=== PATIENT | male | born 1960 | race Caucasian/White ===

== ENCOUNTER 2021-06-17 17:59 | Emergency (ER) | payer MEDICARE, MEDICAID, SELFPAY ==
[2021-06-17 18:41] VITALS: BP 164/83; PULSE 83; RESP 16; TEMP 35.1; O2SAT 99
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
--- NOTE | 2021-06-17 23:53 | NUR.NOTE ---
Nursing Note:care management to set up with pcp and to follow up withe the hotel.
--- NOTE | 2021-06-26 12:15 | PDOC.ERCMPRO ---
- If Service Date Differs Date of service: 06/26/21 Time of Service: 12:15 Care Management Progress Note Jeronimo is seen in the ED for housing instability. CM is asked to outreach to him to assist with housing issues and to connect him with a PCP. CM attempts to reach patient by telephone but the phone number on file ([phone]) is not in service.
== END 2021-06-18 00:11 | disposition home or self-care (01) ==
PROVIDERS: Emergency Provider Physician Assistant
DX: J96.10 Chronic respiratory failure, unspecified whether with hypoxia or hypercapnia (principal); Z99.81 Dependence on supplemental oxygen; Z59.02 Unsheltered homelessness; Z87.891 Personal history of nicotine dependence
CPT/HCPCS: 99281; 99282

== ENCOUNTER 2021-07-20 13:36 | Emergency (ER) | payer MEDICARE, MEDICAID, SELFPAY ==
[2021-07-20 13:45] VITALS: BP 157/89; PULSE 99; RESP 20; TEMP 36.6; O2SAT 99
--- NOTE | 2021-07-20 14:31 | ED.GENADUL_ITS ---
Discharge Plan Disposition Patient Disposition: HOME Condition: Good Discharge Details Clinical Impression: Medication refill Primary Care Provider: Unknown,Unknown ED Provider: Margaret Castro Home Meds and New Rx's Prescriptions: New theophylline 300 mg tablet extended release 12 hr 150 mg PO Q12H Qty: 60 RF: 0 Trelegy Ellipta 100-62.5-25 mcg blister with device 1 inh inhalation DAILY Qty: 60 RF: 0 Continued theophylline 300 mg Tablet Extended Release 12 Hr 150 mg PO BID RF: 0 No Action Trelegy Ellipta 100-62.5-25 mcg Blister With Device 1 inh INHALATION DAILY RF: 0 Discharge Instructions Additional Instructions: Your medications have been refilled and the prescription sent to [facility] in [place]. Please follow-up in urgent care tomorrow to establish primary care follow-up as was instructed by care management. If you develop any new or emergent symptoms please seek care urgently once again. Discharge Data Discharge Date/Time-TO BE ENTERED AT DEPARTURE: 07/20/21 14:58 Medical Decision Making Patient is a pleasant 60 year old male presenting today requesting refill of Trelegy and theophyline. No acute comlaints. Has not yet established with PCP locally. Care management has evaluate dhte patient, advised on how to go about establishing local PCP. He will go to urgent care tomorrow to establish. Refilled medications requested. Return precautions discussed. All quesitons and concerns were addressed, he is in agreement with this plan. HPI General Mode of arrival: ambulatory . Date/Time Provider Initiated Documentation: 07/20/21 14:31 . Limitations to Documentation: no limitations . Information obtained by: patient, RN notes reviewed and old records reviewed . HPI Narrative: Patient is a pleasant 60 year old male presenting today with c/c of medication refill. He is new ot the area, has not yet established with PCP. Hx of COPD. States he is running low on Trelegy and theophylline. No acute complaints today. Related Data Home Medications Medication Instructions Recorded Confirmed Trelegy Ellipta 1 inh INHALATION DAILY 06/17/21 07/20/21 theophylline 150 mg PO BID 06/17/21 07/20/21 [id number] 1 inh INHALATION DAILY #60 ea 07/20/21 [Trelegy Ellipta] theophylline 150 mg PO Q12H #60 tab 07/20/21 Previous Rx's Medication Instructions Recorded [id number]-lukoeiqmv-[id number] 1 inh INHALATION DAILY #60 ea 07/20/21 [Trelegy Ellipta] theophylline 150 mg PO Q12H #60 tab 07/20/21 Allergies Allergy/AdvReac Type Severity Reaction Status Date / Time Penicillins Allergy Unverified 06/17/21 23:30 General Stated Complaint: Recheck OSMAN: 5 Review of Systems Constitutional Constitutional: Reports as per HPI, Denies chills, Denies fever(s) and Denies headache(s) ENT Ears, Nose, Mouth, and Throat: Denies headache(s) Cardiovascular Cardiovascular: Reports as per HPI, Denies chest pain and Denies dyspnea Respiratory Respiratory: Reports as per HPI, Denies cough and Denies dyspnea Neurologic Neurologic: Denies headache(s) [facility] Active Problem List (Updated 07/20/21 @ 14:47 by ZAC Sanders) Housing instability (Acute) Medication refill (Acute) Social History Smoking/Tobacco Use Status: Former Tobacco Use Smoking risk assessment performed?: Yes Alcohol Intake: former Drug use: Never Substance use type: does not use Additional Social history: Currently Homeless, ran out of O2 Exam Const General: cooperative, comfortable, no acute distress and ill appearing chronically Nutritional Appearance: well nourished and thin Orientation: alert and awake Resp Effort & Inspection: normal respiratory effort (using home O2 without difficulty or work of breathing), able to speak in complete sentences and no respiratory distress Cardio Rate: regular rate Rhythm: regular rhythm Skin General skin exam: no rashes or lesions noted Neuro General: patient alert and patient awake Cognition: normal cognition Speech: speech normal Gait: normal gait Psych Appearance: grossly normal and well kempt Mental Status: mental status grossly normal Speech and Movement: speech and movement normal Course Vital Signs Vital signs: Vital Signs Temperature 36.6 C 07/20/21 13:45 Pulse 99 H 07/20/21 13:45 Respiratory Rate 20 07/20/21 13:45 Blood Pressure 157/89 H 07/20/21 13:45 Pulse Oximetry 99 07/20/21 13:45 Temperature 36.6 C 07/20/21 13:45 Temperature Source Skin 07/20/21 13:45 Pulse 99 H 07/20/21 13:45 Respiratory Rate 20 07/20/21 13:45 Respiratory Effort 07/20/21 13:51 Blood Pressure 157/89 H 07/20/21 13:45 Blood Pressure Position Sitting 07/20/21 13:45 Pulse Oximetry 99 07/20/21 13:45 Oxygen Delivery Method Room Air 07/20/21 13:45 Oxygen Flow Rate 0 07/20/21 13:45 Pain Level 0 07/20/21 13:45
--- NOTE | 2021-07-20 15:29 | CMPROGNOTE_ITS ---
- If Service Date Differs Date of service: 07/20/21 Time of Service: 15:29 Care Management Progress Note Jeronimo presents in the ED for refills of his medications. At the request of ED provider, BARI meets with Jeronimo to assist him in establishing care with a local PCP. Jeronimo advises that he spent approximately a year at the [facility] in [place], [place]. He was subsequently transferred to [facility] before being discharged back to the community. Jeronimo states he lost his housing while at the longterm and says he was unable to return to [facility] because of a disagreement. 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 In the interim, he is staying at the [facility] in [place]. 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
== END 2021-07-20 14:58 | disposition home or self-care (01) ==
PROVIDERS: Emergency Provider Physician Assistant
DX: J44.9 Chronic obstructive pulmonary disease, unspecified (principal); Z76.0 Encounter for issue of repeat prescription
CPT/HCPCS: 99283

== ENCOUNTER 2021-10-07 01:39 | Outpatient (CLI) | payer MEDICARE, MEDICAID, SELFPAY ==
--- OUTSIDE RECORDS SUMMARY | 2021-10-07 01:41 | XMS_ITS | Continuity of Care Document ---
:1960 Author Organization [facility] Care Team Providers Name Role Phone [facility] Unavailable Unavailable Encounters Combined list of: 1) Encounters from Department of Veterans Affairs facilities going back up to thelast 18 months, not all VA inpatient encounters are included; 2) Encounters from the Department of Defense facilities going backup to 280 months. Location Location Encounter Encounter Reason Attending ADM DC Stat us Disposition Source Details Type Number For Provider Date Date Visit Outpatient [id number] 05/13 ALFONSO Sawant Encounter [id number] /2021 [facility]
--- OUTSIDE RECORDS SUMMARY | 2021-10-07 01:41 | XMS_ITS | Encounter Summary ---
:1960 Author Organization Department [facility] Address [address] [place] [id number] Support Name Relationship Address Phone BLOVIN Unavailable [address] [place] [address] BLOVIN Unavailable [address] [place] [address] Selected Encounter This section includes the information on record at [place] for the Encounter. Date/Time Encounter Type Encounter Description Reason Provider Source May 13, 2021 10:58 Outpatient Encounter ADMIN PAT ACTIVTIES AM (MASNONCT) IHE Encounter Template Text not used by VA Encounter Notes: All associated encounter notes This section contains the clinical notes associated to the Encounter. Date/Time Encounter Note(s) Provider Source May 13, 2021 10:58 AM ADMINISTRATIVE NOTE: CORRINA ROBERTS [facility] WILY KUMAR T LOCAL TITLE: ELIGIBILITY NOTE V [facility] STANDARD TITLE: ADMINISTRATIVE NOTE DATE OF NOTE: MAY 13, 2021@10:58 ENTRY DATE: MAY 13, 2021@10:58:54 AUTHOR: CORRINA ROBERTS EXP COSIGNER: URGENCY: STATUS: COMPLETED Eligible: NO Priority Group: NONE - HUMANITARIAN Not Eligible because: NATIONAL GUARD SER VICE ONLY - NO ACTIVE DUTY UNDER TITLE 10 OR ACTIVE DUTY FOR 24 MONTHS INDICATED Copay status: WILL BE BILLED AT THE HUMANITARIAN RATE Was [place] Notified: LETTER SENT VIA MAIL Dear , In accordance with VA Regulations person s who originally enlisted in a regular component of the Armed Force s after May 05, 1980, or after June 14, 1981 for non-enlisted personnel, are not eligible for benefits administered by the VA unless the completed the lesser of: 1. Twenty-four (24) continuou s months of active duty, or 2. The full period time tan d or order to active duty. In accordance with VA Regulations, a person prio r to April 1980, needs to have 1 day of active duty service that is not cl assified as training. The minimum active duty requirem ents noted above do not apply for an individual who was discharged or release from active duty for: 1. Reasons of early out (10 [facility] 1171); or 2. Reasons of hardship (10 [facility] 1173); or 3. Disab ility incurred or aggravated by in the line of duty (Disability; or 4. A who has a compe nsable VA rated service connected disability. We have been advised your release from a ctive duty was not by reasons of early out, hardship, a line of dut y disability, nor do you have a compensable VA rated service connected disability . Therefore, regretfully, you are not eligible for VA medical benefits. If you have any questions, please contact us via email. Sincerely yours, Corrina Roberts Appliance Worker [phone] Ext: [phone] /es/ CORRINA ROBERTS Signed: 05/13/2021 11:01
[2021-10-07 12:20] LABS: HCT 45.7 % (40.0-50.0); HGB 14.7 g/dL (13.5-17.5); MCH 28.3 pg (27.0-33.0); MCHC 32.2 % (32.0-36.0); MCV 87.9 fL (80-95); MPV 10.3 fL (8.0-11.0); Platelet Count 216 10^3/uL (130-400); RDW 12.9 % (11.8-14.1); RDW-SD 41.6 fL; WBC 5.82 10^3/uL (4.4-10.8)
[2021-10-07 13:30] LABS: ALT 21 U/L (16-63); AST 18 U/L (15-37); Alkaline Phosphatase 87 U/L (46-116); Anion Gap 9.4 mmol/L (3-11); BUN 12 mg/dL (7-18); Bilirubin, Total 0.4 mg/dL (0.2-1.0); CO2 31.6 mmol/L (21.0-32.0); CREATININE 0.8 mg/dL (0.70-1.30); Calcium 9.2 mg/dL (8.5-10.1); Calculated LDL 144 mg/dL (<100); Chloride 100 mmol/L (98-107); Cholesterol 225 mg/dL (<200); Glucose 96 mg/dL (74-106); HDL Cholesterol 60 mg/dL (40-60); Potassium 3.7 mmol/L (3.5-5.1); Sodium 141 mmol/L (136-145); TSH (W/Ref FT4) 2.21 uIU/mL (0.36-3.74); Total Protein 6.8 g/dL (6.4-8.2); Triglyceride 108 mg/dL (<150)
[2021-10-07 22:50] LABS: Theophylline 8.1 ug/mL (10.0-20.0)
== END 2021-10-07 01:40 | disposition home or self-care (01) ==
LOC: LBO 01:39
PROVIDERS: PCP Family Medicine; Visit Provider Family Medicine
DX: I10 Essential (primary) hypertension (principal); J44.9 Chronic obstructive pulmonary disease, unspecified; Z13.6 Encounter for screening for cardiovascular disorders; Z51.81 Encounter for therapeutic drug level monitoring; Z79.899 Other long term (current) drug therapy
CPT/HCPCS: 36415; 80053; 80061; 85027; 80198; 84443

== ENCOUNTER 2021-12-25 00:55 | Outpatient (CLI) | payer MEDICARE, MEDICAID, SELFPAY ==
--- OUTSIDE RECORDS SUMMARY | 2021-12-25 00:57 | XMS_ITS | Continuity of Care Document ---
:1960 Author Organization [facility] Care Team Providers Name Role Phone [facility] Unavailable Unavailable Encounters Combined list of: 1) Encounters from Department of Veterans Affairs facilities going back up to the last 18 months, not all VA inpatient encounters are included; 2) Encounters from the Department of Defense facilities going back up to 280 months. Location Location Encounter Encounter Reason Attending ADM DC Stat us Disposition Source Details Type Number For Provider Date Date Visit Outpatient [id number] 05/13 ALFONSO Sawant Encounter [id number] /2021 JOSÉ PORRAS [facility]
--- OUTSIDE RECORDS SUMMARY | 2021-12-25 00:57 | XMS_ITS | Encounter Summary ---
:1960 Author Organization [facility] Address [address] [place] [id number] Support Name Relationship Address Phone BLOVIN Unavailable [address] [place] [address] BLOVIN Unavailable [address] [place] [address] Selected Encounter This section includes the information on record at [place] for the Encounter. Date/Time Encounter Type Encounter Description Reason Provider Source May 13, 2021 10:58 Outpatient Encounter ADMIN PAT ACTIVTIES AM (MASNONCT) IHE Encounter Template Text not used by VA Encounter Notes: All associated encounter notes This section contains the clinical notes associated to the Encounter. Date/Time Encounter Note(s) Provider Source May 13, 2021 10:58 AM ADMINISTRATIVE NOTE: CORRINA ROBERTS [facility] WILY KUMAR [facility] LOCAL TITLE: ELIGIBILITY NOTE V [facility] STANDARD TITLE: ADMINISTRATIVE NOTE DATE OF NOTE: MAY 13, 2021@10:58 ENTRY DATE: MAY 13, 2021@10:58:54 AUTHOR: CORRINA ROBERTS EXP COSIGNER: URGENCY: STATUS: COMPLETED Eligible: NO Priority Group: NONE - HUMANITARIAN Not Eligible because: NATIONAL GUARD SER VICE ONLY - NO ACTIVE DUTY UNDER TITLE 10 OR ACTIVE DUTY FOR 24 MONTHS INDICATED Copay status: WILL BE BILLED AT THE HUMANITARIAN RATE Was [place] Notified: LETTER SENT VIA MAIL Dear , In accordance with [place] Regulations person s who originally enlisted in [...] for: 1. Reasons of early out (10 [facility] 1171); or 2. Reasons of hardship (10 [place] 1173); or 3. Disab ility incurred or [...] us via email. Sincerely yours, Corrina Roberts Guest Service Supervisor [phone] Ext: [phone] /es/ CORRINA ROBERTS Signed: 05/13/2021 11:01
--- NOTE | 2021-12-25 07:45 | DI.CTLCSR_ITS ---
Exam(s) CT CHEST LUNG CANCER SCREEN EXAM: CT CHEST LUNG CANCER SCREEN CLINICAL HISTORY: Screening for lung cancer,FORMER SMOKER,Z87.891 TECHNIQUE: Imaging Protocol: Axial computed tomography images with coronal and sagittal reformatted images were created and reviewed COMPARISON: CT CT CHEST LOW DOSE CA SCREENING from 12/25/2020 FINDINGS: Tracheobronchial tree: Patent where visualized. Mediastinum and Viktoriya: No dominant adenopathy or fluid collection. Pulmonary parenchyma: No consolidation or dominant measurable mass. Is severe panlobular emphysema u pper lobes. Moderate emphysematous changes lower lobes. Stable area of scarring right upper lobe. Scarring right lower lobe.. Lung Nodules: None. Pleura: No effusion or pneumothorax. Heart: The heart is not dilated. mild coronary artery calcifications are seen. Aorta: Thoracic aorta non-dilated.Maximal dimension ascending aorta 3.3 cm. Upper abdomen: Unremarkable. Bones: Mild compression and Schmorl's node superior endplate L1. Minimal degenerative changes elsewh ere. Soft Tissues: Mild bilateral gynecomastia, left greater than right. IMPRESSION: No suspicious pulmonary nodules. Severe emphysematous changes. Lung RADS Cat 1 - Negative: No nodules and definitely benign nodule Lung-RADS 1.0 CATEGORIES: Category 0 - Prior chest CT exam(s) being located for comparison. Category 1 - Annual screening in 12 months. No nodules or definitely benign nodules. Category 2 - Annual screening in 12 months. Benign appearance. Nodules with low likelihood of becomin g active cancer. Category 3 - 6-month follow-up. Probably benign. Short-term follow-up suggested. Nodules with low lik elihood of becoming active cancer. Category 4A - 3-month follow-up and CT/PET if >8 mm in size. Suspicious finding. Findings which requi re additional testing. Category 4B - Findings which require additional testing and tissue sampling. Category 4X - Category 3 or 4 nodules with additional features or imaging findings that increases the suspicion of malignancy. Modifier S- Potentially clinically significant findings (non lung cancer) RADIATION DOSE DELIVERED: 91.09mGy.cm Total DLP 1.84mGy CTDIvol DATA REPOSITORY: All CT scans at this facility are submitted to the National Radiology Data Registry (NRDR) Dose Index Registry (DIR) with the [employer] (ACR). RADIATION OPTIMIZATION: All CT scans at this facility use at least one of these dose optimization te ambrose: automated exposure control; mA and/or kV adjustment per patient size (includes targeted exa ms where dose is matched to clinical indication); or iterative reconstruction.
== END 2021-12-25 01:15 ==
PROVIDERS: PCP Family Medicine; Visit Provider Family Medicine
DX: Z12.2 Encounter for screening for malignant neoplasm of respiratory organs (principal); Z87.891 Personal history of nicotine dependence; J43.8 Other emphysema; J98.4 Other disorders of lung
CPT/HCPCS: 71271

== ENCOUNTER 2022-02-01 04:13 | Outpatient (CLI) | payer MEDICARE, MEDICAID, SELFPAY ==
[2022-02-01 08:28] LABS: BE 6 mmol/L (-2-3); HCO3 32 mmol/L (22-26); pH 7.32 (7.35-7.45); pO2 119 mmHg (80-105); sO2 98 % (95-98); tCO2 29 mmol/L (23-27)
[2022-02-01] MEDS: Albuterol HFA 18 GM 200 PUFF INH IH (09:11)
[2022-02-01] MEDS: Inhaler, Assist Device 1 EACH MC (09:12)
[2022-02-01 09:17] LABS: Site Right Radial; pCO2 62 mmHg (35-45)
[2022-02-01 09:18] LABS: FIO2L 2 L
--- NOTE | 2022-02-01 10:41 | W.PFT ---
Date of service: 02/01/22 Time of Service: 08:15 Pulmonary Function Test Result Requesting Provider Anoop Indications: COPD 6 Minute Walk Test Distance walked: 600 feet Desaturations: Low was 91% on baseline 2 LPM O2 Heart rate changes:Tachycardia from 95 at rest to 114 with exertion Recommendation:2LPM sufficient with exertion. Cata Davalos MD Pulmonary & Critical Care Medicine
--- NOTE | 2022-02-02 08:57 | W.PFT ---
Date of service: 02/01/22 Time of Service: 08:27 Pulmonary Function Test Result Requesting Provider Duchene Indications: Severe DELATORRE Interpretation Spirometry: There is very severe airflow limitation. The reduced FVC is likely due to severe obstruction. There is no significant bronchodilator response. Diffusion Capacity: Severely reduced diffusion. Impression Very severe airflow obstruction with a severely decreased diffusion. Lung volumes could not be performed due to need for continuous oxygen. Clinical Correlation therefore is recommended.
== END 2022-02-01 04:14 | disposition home or self-care (01) ==
PROVIDERS: PCP Family Medicine; Visit Provider Student in an Organized Health Care Education/Training Program
DX: J44.9 Chronic obstructive pulmonary disease, unspecified (principal); R06.09 Other forms of dyspnea; Z99.81 Dependence on supplemental oxygen
CPT/HCPCS: 82805; 94060; 94618; 94729; 36600

== ENCOUNTER → 2023-07-05 13:28 | Outpatient (BNVA) | payer MEDICARE, MEDICAID, SELFPAY | PROVIDERS: PCP Family Medicine; Referring Provider Family Medicine; Visit Provider Physician Assistant Surgical | DX: J43.9 Emphysema, unspecified (principal); Z99.81 Dependence on supplemental oxygen; Z79.899 Other long term (current) drug therapy; J96.91 Respiratory failure, unspecified with hypoxia; J96.92 Respiratory failure, unspecified with hypercapnia; Z23 Encounter for immunization; Z87.891 Personal history of nicotine dependence | CPT/HCPCS: 90677; 99214; G0009 ==

== ENCOUNTER 2023-07-13 22:58 | Inpatient (IN) | payer MEDICARE, MEDICAID, SELFPAY ==
--- NOTE | 2023-07-13 22:00 | RT.EKG_ITS ---
APPROVED REPORT Exam: Resting ECG Reason for Exam: Breathing Diff Patient Location: E HR:102 bpm ECG Measurements Heart Rate 102 AXIS NH 106 P 87 QRSd 94 QRS 52 QT 368 T 46 QTc 480 Conclusion Sinus tachycardia...rate> 99 Low voltage, extremity leads...all extremity leads <0.5mV ST depr, consider ischemia, inferior leads...ST <-0.10mV, II III aVF Physician: no stemi
--- NOTE | 2023-07-13 22:15 | DI.RAD_ITS ---
Exam(s) XR PORTABLE CHEST AP EXAM: XR PORTABLE CHEST AP CLINICAL HISTORY: post intubation, hypoxic TECHNIQUE: 2D digital imaging was performed. COMPARISON: CT CT CHEST LUNG CANCER SCREEN from 12/25/2021 FINDINGS: Exam limited by overlying monitoring leads and oxygen tubing. Left lung base not included on the f ilm. LUNGS: Severe emphysematous changes. Marked hyperinflation. Interstitial changes greatest at the le ft lung base appear chronic. No pleural abnormality seen. HEART: Normal size. AORTA: Normal diameter. BONES: Unremarkable for age. Soft tissues: Endotracheal tube has been inserted. The tip projects above the level of the aortic ar ch. IMPRESSION: No acute findings. Satisfactory placement of endotracheal tube. DATA REPOSITORY: RADIATION DOSE DELIVERED:
[2023-07-13 22:22] VITALS: BP 135/38; PULSE 115; RESP 16; O2SAT 100
[2023-07-13 22:29] VITALS: BP 135/38; PULSE 102; RESP 16; O2SAT 98
[2023-07-13 22:30] VITALS: PULSE 104; O2SAT 100
[2023-07-13] MEDS: Rocuronium 50 MG/5 ML SYR 100 MG IVP (22:30)
[2023-07-13] MEDS: MAGNESIUM SULFATE 2 GM/50 ML BAG 100 GM (22:37)
[2023-07-13 22:41] LABS: Abs Immature Grans 0.02 10^3/uL (0.0-0.06); Absolute Basophil Count 0.02 10^3/uL (0.0-0.2); Absolute Eosinophil Count 0.06 10^3/uL (0.0-0.7); Absolute Lymphocyte Count 2.11 10^3/uL (1.2-3.4); Absolute Monocyte Count 0.75 10^3/uL (0.1-0.8); Absolute Neutrophil Count 5.47 10^3/uL (1.2-6.7); Basophils % 0.2; Eosinophils % 0.7; HCT 37.6 % (40.0-50.0); HGB 11.7 g/dL (13.5-17.5); Immature Grans % 0.2; MCHC 31.1 % (32.0-36.0); MCV 93 fL (80-95); Monocytes % 8.9; Platelet Count 175 10^3/uL (130-400); RBC 4.03 10^6/uL (4.36-5.78); RDW 12.7 % (11.8-14.1); RDW-SD 43.8 fL; WBC 8.43 10^3/uL (4.4-10.8)
[2023-07-13] MEDS: EPINEPHrine 1 MG/10 ML SYR (22:50)
--- NOTE | 2023-07-13 22:50 | DI.VRAD_ITS ---
PROCEDURE INFORMATION: Exam: XR Chest Exam date and time: 07/13/2023 22:35 Age: 62 years old Clinical indication: Device placement; Other: Post-intubation; Other: Hypoxic; Additional info: Post intubation, hypoxic TECHNIQUE: Imaging protocol: Radiologic exam of the chest. Views: 1 view. COMPARISON: CT CHEST LUNG CANCER SCREEN 12/25/2021 12:20 FINDINGS: Tubes, catheters and devices: Endotracheal tube terminates 6 cm above the henny. Lungs: Severe pulmonary emphysema again seen. No gross airspace consolidation. Pleural spaces: No pleural effusion. No pneumothorax. Heart/Mediastinum: Diminution of the cardiac silhouette in the setting of emphysema. Bones/joints: No acute fracture. IMPRESSION: 1. Endotracheal tube terminates 6 cm above the henny. 2. Severe pulmonary emphysema again seen. Dictated and Authenticated by: Jessica Lazo MD. Ordering:DOMINIQUE Nguyen MD
[2023-07-13 22:51] VITALS: RESP 16
[2023-07-13 22:54] LABS: INR 1.1 (0.9-1.1); PTT Activated 26.3 sec (23.6-32.8); Prothrombin Time 10.9 sec (9.1-11.1)
[2023-07-13 22:57] LABS: BE -1 mmol/L (-2-3); HCO3 28 mmol/L (22-26); pO2 462 mmHg (80-105)
[2023-07-13 23:00] VITALS: PULSE 98; RESP 16; RESP 36; O2SAT 100
[2023-07-13] MEDS: PROPOFOL 1,000 MG/100 ML BTL 5.9 MG IV (23:00)
[2023-07-13 23:01] LABS: ALT 24 U/L (16-63); AST 28 U/L (15-37); Alkaline Phosphatase 79 U/L (46-116); Anion Gap 4.9 mmol/L (3-11); BUN 24 mg/dL (7-18); Bilirubin, Total 0.3 mg/dL (0.2-1.0); CO2 31.1 mmol/L (21.0-32.0); CREATININE 0.8 mg/dL (0.70-1.30); Calcium 7.7 mg/dL (8.5-10.1); Chloride 103 mmol/L (98-107); Estimated GFR 98.83 (mL/min/1.73m2); Glucose 249 mg/dL (74-106); Potassium 4.2 mmol/L (3.5-5.1); Sodium 139 mmol/L (136-145); Total Protein 6.1 g/dL (6.4-8.2); Troponin I < 50 ng/L (<or=60)
[2023-07-13 23:02] LABS: pCO2 81 mmHg (35-45); pH 7.15 (7.35-7.45)
[2023-07-13] MEDS: Norepinephrine in D5W 8 MG/250 ML BAG 84.4 MG IV (23:07)
[2023-07-13 23:08] LABS: NT-proBNP 102 pg/mL (<300); TSH (W/Ref FT4) 6.09 uIU/mL (0.36-3.74)
[2023-07-13 23:14] LABS: Procalcitonin < 0.1 ng/mL
[2023-07-13 23:15] VITALS: PULSE 122; O2SAT 100
--- NOTE | 2023-07-13 23:21 | ED.GENADUL_ITS ---
Discharge Plan Disposition Patient Disposition: Admit to [facility] Condition: Improving Discharge Details Chief Complaint: SOB Clinical Impression: Acute hypercapnic respiratory failure, COPD exacerbation Primary Care Provider: Shan Do ED Provider: Patrick Gonzales Home Meds and New Rx's Prescriptions: No Action Narinder Sunta 100-62.5-25 mcg blister with device 1 inh INHALATION DAILY Qty: 60 11RF albuterol sulfate 90 mcg/actuation HFA aerosol inhaler 2 puff inhalation Q6H PRN (Reason: shortness of breath or wheezing) Qty: 8.5 11RF acetaminophen [Tylenol Extra Strength] 500 mg tablet 500 mg PO Q6H PRN theophylline 300 mg tablet extended release 12 hr 150 mg PO BID Qty: 60 5RF Medical Decision Making 62-year-old male with a past medical history severe COPD, currently oxygen dependent, hypertension, tobacco abuse, presents today for evaluation for shortness of breath. Patient was recently seen by pulmonology within the last week or so, with increased work of breathing with a COPD exacerbation. He was then seen by his primary care provider today with increased work of breathing and oxygen demand. He called 911 [facility] for shortness of breath. Upon EMS arrival he was tripoding and hypoxic. 70 per 7% on 6 L, when they got him out to the rig he went down to 65%. He did verbalize to EMS that he wanted to be intubated, he refused BiPAP after multiple attempts and request by EMS. On 10 L of supplemental oxygen the patient began desaturating and became confused, altered and relatively unresponsive. The decision was then made by EMS to intubate the patient. Airway was secured with Ativan Versed and succi nylcholine. 7.5 endotracheal tube was placed. 2 inline nebs were given, 125 Solu-Medrol was administered. The patient was brought to the ER. Upon arrival the patient obviously has no current complaints as he is intubated. He is noted to be hypotensive, hypoxemic, with a secure intubation with capnography return. Upon arrival patient was noted to be hypoxic, hypotensive, no radial or dorsalis pedis or posterior tibial pulses. Immediate bedside ultrasound was performed and limited lung sliding was noted bilaterally, but lungs were not adhered in the form suggestive of a tension pneumothorax. Concern for severe COPD with potential for air trapping. Immediate portable chest x-ray was performed and it demonstrated no pneumothorax, and severe emphysema was present. The patient was taken off the vent, I applied direct pressure to the chest to diminish the air trapping. This was performed twice, and respirations were significantly improved and easier after this. With no evidence of pneumothorax, management of severe COPD exacerbation was continued. 2 g of magnesium were rapidly administered, blood pressure remained low with this, however lung compliance notably improved and peak pressures on the vent notably improved/diminished. Lung compliance improved even more. Continued inline nebulizers were continued. Patient did start to gain involuntary movements and started bucking the vent at this moment. Propofol was continued and 100 mg of rocuronium were given. Triple-lumen catheter was placed in the left femoral vein., Levophed was started, which notably improved his blood pressures to a normotensive level. Arterial line was placed in the left femoral artery as well. No complications during procedures. Blood pressure improved with Levophed. Vital signs notably improved. Blood work returned and demonstrates no white count, stable hemoglobin. Lactate is 2. ABG demonstrates a pH of 7.15, PCO2 of 81, notably elevated O2. Oxygen was titrated down at this point, and we continue to focus on smaller more frequent breaths. Compliance remained good. Troponin normal. EKG shows no evidence of STEMI. Out of concern for potential infectious component levof loxacin was started. Doubt fulminant sepsis. Symptoms appear consistent with severe COPD exacerbation. Discussed the case with the hospitalist Dr. Yeung well, he agrees with the assessment and plan and accepts the patient to ICU for admission. I have extensively reviewed the treatment plan with the patient. I have addressed all patient concerns at this time. I have also discussed the plan with the admitting physician and they agree with the current assessment and plan and have agreed to assume responsibility for the patient. All parties demonstrate verbal understanding and agreement with our assessment and plan at this time. The documentation in this chart was dictated using [employer] dictation software. Please excuse any dictation errors. HPI General Date/Time Provider Initiated Documentation: 07/13/23 23:21 . HPI Narrative: 62-year-old male with a past medical history severe COPD, currently oxygen dependent, hypertension, tobacco abuse, presents today for evaluation for shortness of breath. Patient was recently seen by pulmonology within the last week or so, with increased work of breathing with a COPD exacerbation. He was then seen by his primary care provider today with increased work of breathing and oxygen demand. He called 911 tonight for shortness of breath. Upon EMS arrival he was tripoding and hypoxic. 70 per 7% on 6 L, when they got him out to the rig he went down to 65%. He did verbalize to EMS that he wanted to be intubated, he refused BiPAP after multiple attempts and request by EMS. On 10 L of supplemental oxygen the patient began desaturating and became confused, altered and relatively unresponsive. The decision was then made by EMS to intubate the patient. Airway was secured with Ativan Versed and succinylcholine. 7.5 endotracheal tube was placed. 2 inline nebs were given, 125 Solu-Medrol was administered. The patient was brought to the ER. Upon arrival the patient obviously has no current complaints as he is intubated. He is noted to be hypotensive, hypoxemic, with a secure intubation with capnography return. Related Data Home Medications Medication Instructions Recorded Confirmed acetaminophen 500 mg tablet 500 mg PO Q6H PRN 10/05/21 05/04/22 (Tylenol Extra Strength) theophylline 300 mg 150 mg (1/2 x 300 mg) PO BID #60 12/25/21 05/04/22 tablet,extended release,12 hr tabs albuterol sulfate 90 mcg/actuation 2 puff inhalation Q6H PRN 07/05/23 07/05/23 aerosol inhaler shortness of breath or wheezing #8.5 grams fluticasone fur. 100 mcg-umeclid 1 inh inhalation DAILY #60 ea 07/05/23 07/13/23 62.5 mcg-vilant 25 mcg inhalat.powder (Trelegy Ellipta) Previous Rx's Medication Instructions Recorded theophylline 300 mg 150 mg (1/2 x 300 mg) PO BID #60 12/25/21 tablet,extended release,12 hr tabs albuterol sulfate 90 mcg/actuation 2 puff inhalation Q6H PRN 07/05/23 aerosol inhaler shortness of breath or wheezing #8.5 grams fluticasone fur. 100 mcg-umeclid 1 inh inhalation DAILY #60 ea 07/05/23 62.5 mcg-vilant 25 mcg inhalat.powder (Trelegy Ellipta) Allergies Allergy/AdvReac Type Severity Reaction Status Date / Time Penicillins Allergy Unverified 07/13/23 13:06 General Stated Complaint: SOB OSMAN: 2 Review of Systems All systems reviewed & are unremarkable except as noted in HPI and below PFSH All Active Problems COPD exacerbation (Acute) Acute hypercapnic respiratory failure (Acute) Respiratory failure with hypoxia and hypercapnia (Acute) Hyperlipidemia (Acute) Tubular adenoma of colon (Acute) Depressive disorder (Chronic) Patient with inpatient mental health admission in [facility] system-unclear diagnosis-patient attributes to flare social stressors-no subsequent follow-up since moving to [place]. Symptoms currently quiet as of 10/1999 Degenerative joint disease involving multiple joints (Acute) Weight loss (Acute) PTSD (post-traumatic stress disorder) (Acute) Personal history of nicotine dependence (Acute) 09/2021-about a 34-trcg-vmtv history of smoking, patient quit 2016 11/2020-Chest cT screen-unremarkable Essential hypertension (Acute) COPD (chronic obstructive pulmonary disease) (Chronic) O2 dependent Housing instability (Acute) Surgical History (Updated 10/05/21 @ 16:42 by Vera Farley) H/O lumpectomy (~08/08/07) large sebaceous cyst removed from right index finger History of open reduction and internal fixation (ORIF) procedure (~08/24/13) intertrochanteric Fx right hip Family History (Updated 01/05/22 @ 13:24 by Tanesha Crisostomo) Mother Heart disease COPD (chronic obstructive pulmonary disease) Father Alcohol use disorder Heart disease Brother Substance use disorder Social History (Updated 01/05/22 @ 13:35 by Tanesha Crisostomo) Smoking/Tobacco Use Status: Former Tobacco Use tobacco type: cigarettes Quit Date: 08/29/14 Tobacco: How many years used: 41 Second Hand Exposure: Yes Smoking risk assessment performed?: Yes Alcohol Intake: former Details: Pt formerly chewed tobacco Drug use: Never Substance use type: does not use Caregiver/Support person: No Household members: none Housing: apartment Do you need help understanding health information?: Rarely Pets and animals: No Sexually active: No Do you think of yourself as: straight/heterosexual Current gender identity: male What is your relationship status?: How often do you talk on the phone with friends or family?: never How often do you get together with friends or relatives?: never How often do you attend sabianism or yazdanism services?: decline to answer Do you belong to any clubs or organized social groups?: decline to answer Panel score (0-1 are the most socially isolated patients): 0 Duration: < 15 minutes/day Frequency: 1-2 times per week Liss/Catholic: No preference Special liss needs: No Additional Social history: Currently Homeless, ran out of O2 Exam Narrative Exam Narrative: 1.Const: Well-nourished, Well-developed, appearing stated age 2.Eyes: PERRL, no conjunctival injection, and symmetrical lids. 3.ENT: Atraumatic external nose and ears. Moist MM. Neck: Symmetric, trachea midline, No thyromegaly. 4.CVS: +S1/S2, No murmurs or gallops. Peripheral pulses 2+ and equal in all extremities. Sluggish capillary refill in all extremities. No palpable radial or dorsalis pedis pulses. Palpable carotid pulses are noted. 5.RESP: Intubated, good capnography return. Extremely diminished breath sounds throughout. No chest wall asymmetry or subcutaneous crepitus. 6.GI: Soft, Nontender/Nondistended, No hepatosplenomegaly. No guarding or rebound. 7.MSK: Normocephalic/Atraumatic, Extremities w/o deformity or ttp No cyanosis or clubbing, Normal movement of all extremities 8.Skin: Warm, Dry. No rashes or lesions. 9.Neuro: Intubated and sedated Course Vital Signs Vital signs: Vital Signs Pulse 115 H 07/13/23 22:22 Respiratory Rate 16 07/13/23 22:22 Blood Pressure 135/38 L 07/13/23 22:22 Pulse Oximetry 100 07/13/23 22:22 Pulse 102 H 07/13/23 22:29 Respiratory Rate 16 07/13/23 22:51 Respiratory Effort Mechanically Ventilated 07/13/23 22:51 Respiratory Depth Normal 07/13/23 22:51 Respiratory Pattern Normal 07/13/23 22:51 Blood Pressure 135/38 L 07/13/23 22:29 Blood Pressure Position Supine 07/13/23 22:29 Pulse Oximetry 98 07/13/23 22:29 Oxygen Delivery Method Mechanical Ventilator 07/13/23 22:29 Lab/Test Results Lab/Test Results: 07/13/23 22:29 Blood Blood Culture - Pending 07/13/23 22:30 Blood Blood Culture - Pending Laboratory Tests Range/Units 07/13/23 07/13/23 22:28 22:55 WBC (4.4-10.8) 10^3/uL 8.43 RBC (4.36-5.78) 10^6/uL 4.03 L Hgb (13.5-17.5) g/dL 11.7 L Hct (40.0-50.0) % 37.6 L MCV (80-95) fL 93 MCH (27.0-33.0) pg 29.0 MCHC (32.0-36.0) % 31.1 L RDW (11.8-14.1) % 12.7 Plt Count (130-400) 10^3/uL 175 MPV (8.0-11.0) fL 10.0 Immature Gran % 0.2 Neutrophils % 65.0 Lymphocytes % 25.0 Monocytes % 8.9 Eosinophils % 0.7 Basophils % 0.2 Nucleated RBC % (0.0-0.3) % 0.0 Absolute Neutrophils (1.2-6.7) 10^3/uL 5.47 Absolute Lymphocytes (1.2-3.4) 10^3/uL 2.11 Absolute Monocytes (0.1-0.8) 10^3/uL 0.75 Absolute Eosinophils (0.0-0.7) 10^3/uL 0.06 Absolute Basophils (0.0-0.2) 10^3/uL 0.02 PT (9.1-11.1) sec 10.9 INR (0.9-1.1) 1.1 APTT (23.6-32.8) sec 26.3 ABG Sample Site Unknown ABG pH (7.35-7.45) 7.15 L* ABG pCO2 (35-45) mmHg 81 H* ABG pO2 (80-105) mmHg 462 H ABG HCO3 (22-26) mmol/L 28 H ABG Total CO2 (23-27) mmol/L ABG O2 Saturation (95-98) % ABG Base Excess (-2-3) mmol/L -1 VBG Lactate (0.6-1.4) mmol/L 2.0 H Sodium (136-145) mmol/L 139 Potassium (3.5-5.1) mmol/L 4.2 Chloride (98-107) mmol/L 103 Carbon Dioxide (21.0-32.0) mmol/L 31.1 Anion Gap (3-11) mmol/L 4.9 BUN (7-18) mg/dL 24 H Creatinine (0.70-1.30) mg/dL 0.8 Est GFR (CKD-EPI 2020) (mL/min/1.73m2) 98.83 Glucose (74-106) mg/dL 249 H Calcium (8.5-10.1) mg/dL 7.7 L Total Bilirubin (0.2-1.0) mg/dL 0.3 AST (15-37) U/L 28 ALT (16-63) U/L 24 Alkaline Phosphatase (46-116) U/L 79 Troponin I (<or=60) ng/L < 50 NT-Pro-B Natriuret Pep (<300) pg/mL 102 Total Protein (6.4-8.2) g/dL 6.1 L Albumin (3.4-5.0) g/dL 3.0 L Procalcitonin ng/mL < 0.1 TSH (0.36-3.74) uIU/mL 6.09 H Procedures Arterial Line Time Out Performed: Yes Size (Gauge): 20 Technique Used: guide wire technique Post-Procedure: line sutured into place and dry sterile dressing placed Patient Tolerated Procedure: well and no complications Complications: none Site: left and femoral Central Line Placement Left Femoral: Time Out Performed: Yes Patient Placed on Monitor/Pulse Ox: Yes MD Prep: mask and gloves Central Line Prep: Chlorhexidine scrub Ultrasound Used for Placement: Yes Central Line Lumen Inserted: triple Post Procedure: good blood return, all ports aspirated, flushed, capped and sutured in place with 2-0 silk Post Procedure X-Ray: tip of catheter in good position Patient Tolerated Procedure: well and no complications Complications: none Critical Care Time Critical Care Time Critical Care Time: Yes Total Critical Care Time: 60 Attestation: Upon my evaluation, this patient had a high probability of imminent or life- threatening deterioration, which required my direct attention, intervention, and personal management. I have personally provided 60 minutes of critical care time exclusive of time spent on separately billable procedures. Time includes review of laboratory data, radiology results, discussion with consultants, and monitoring for potential decompensation. Interventions were performed as documented.
[2023-07-13 23:25] LABS: FREE T4 1.07 ng/dL (0.76-1.46)
[2023-07-13 23:29] LABS: Bilirubin Negative (Negative); Blood Trace-intact (Negative); Clarity Sl Cloudy (Clear); Glucose 100 mg/dL (Negative); Ketones Negative (Negative); Leukocyte Esterase Negative (Negative); Nitrite Negative (Negative); Specific Gravity >= 1.030 (1.005-1.025)
[2023-07-13] MEDS: Normal Saline 500 ML IV (23:30)
[2023-07-13 23:33] LABS: COVID-19 PCR Negative (Negative); Influenza A PCR Negative (Negative); Influenza B PCR Negative (Negative); RSV PCR Negative (Negative)
[2023-07-13 23:35] LABS: Source Nasopharynx
[2023-07-13 23:40] LABS: Bacteria Moderate HPF (Negative); C & S Indicated? Yes; Casts 3-5 Hyaline LPF (Negative); Crystals Negative HPF (Negative); Epithelial Cells Negative HPF (Negative); Mucus Negative (Negative); Other Cells Moderate Renal (Negative)
[2023-07-13] MEDS: levoFLOXacin 750 MG/150 ML BAG 100 MG IVPB (23:40)
[2023-07-14] VITALS (207 sets, daily range): BP systolic 67–162; BP diastolic 53–102; PULSE 71–144; RESP 2–36; TEMP 36.3–36.9; O2SAT 88–99
--- NOTE | 2023-07-14 00:31 | HPE_ITS ---
Date of service: 07/13/23 Time of Service: 23:55 Assessment and Plan Assessment and plan (1) Acute hypercapnic respiratory failure: Start date: 07/13/23 Status: Acute Assessment and plan: This is a 62-year-old gentleman who lives alone at home with severe PTSD and paranoia presenting with respiratory failure with acute hypercapnic respiratory failure. He does have severe COPD and emphysema and is chronically oxygen dependent. He had been treated for severe COPD exacerbation recently with increasing oxygen needs. He required intubation and mechanical ventilation in the ED having been intubated in the field. He will require continued mechanical ventilation support and will be admitted to the ICU for continued care. He is a full code. (2) COPD exacerbation: Start date: 07/13/23 Status: Acute Assessment and plan: Patient is chronically oxygen dependent and chronic smoker with emphysema and COPD. Recent exacerbation will be treated as an outpatient and he will now continue inpatient treatment with IV Solu-Medrol, aggressive nebulizer treatments and he is covered with Levaquin for possible infection though chest x-ray shows no acute infiltrates. (3) Hyperglycemia without ketosis: Start date: 07/13/23 Status: Acute Assessment and plan: Patient has hyperglycemia with measurements distress and will be receiving Solu- Medrol. There is no history of diabetes but glucometer measurements will be checked with insulin coverage if needed while hospitalized. (4) Hypocalcemia: Start date: 07/13/23 Status: Acute Assessment and plan: IV calcium gluconate and monitor labs daily. Patient did receive 2 g of magnesium sulfate for treatment of COVID exacerbation and respiratory failure. (5) PTSD (post-traumatic stress disorder): Status: Chronic Assessment and plan: Patient chronically has paranoia with PTSD. He lives alone. History of Present Illness History of Present Illness Chief Complaint: Respiratory distress at home intubated in the field. Narrative: This is a 62-year-old male patient with a history of severe COPD with emphysema and oxygen dependent having seen his machine pecan gatherer and PCP in the last week for exacerbation of COPD. He was having increased oxygen needs. He called 911 from home because of increasing shortness of breath and was tripoding at the time EMS was at the scene and not responding to supportive care yet refusing BiPAP. He agreed to be intubated and this was done in the field after sedation. In the ED there was some difficulty filling because of air trapping which improved with magnesium infusion and compression of the chest twice. Saw the patient he was tachycardic on epinephrine for blood pressure support and was ventilating better. He appears comfortable. He did receive Solu-Medrol, Levaquin continue propofol for sedation while intubated. Chest x-ray showed emphysema with severe and endotracheal tube in place. He was admitted to the ICU for continued mechanical ventilation and treatment of COPD exacerbation having failed outpatient therapy. Patient is a smoker by history though I am not sure if this continues have been a prolonged hospitalization in 2021 and smoking during that time. He presently lives alone in [place] previously being from [facility] with severe PTSD and isolation. He is a full code. Review of Systems Narrative: 13 point review of systems unobtainable with patient intubated. PFSH All Active Problems Hypocalcemia (Acute) Hyperglycemia without ketosis (Acute) COPD exacerbation (Acute) Acute hypercapnic respiratory failure (Acute) Respiratory failure with hypoxia and hypercapnia (Acute) Hyperlipidemia (Acute) Tubular adenoma of colon (Acute) Depressive disorder (Chronic) Patient with inpatient mental health admission in [facility] system-unclear diagnosis-patient attributes to flare social stressors-no subsequent follow-up since moving to [place]. Symptoms currently quiet as of 10/1999 Degenerative joint disease involving multiple joints (Acute) Weight loss (Acute) PTSD (post-traumatic stress disorder) (Chronic) Personal history of nicotine dependence (Acute) 09/2021-about a 97-[id number]-[id number] history of smoking, patient quit 2016 11/2020-Chest cT screen-unremarkable Essential hypertension (Acute) COPD (chronic obstructive pulmonary disease) (Chronic) O2 dependent Housing instability (Acute) Surgical History H/O lumpectomy (~08/08/07) large sebaceous cyst removed from right index finger History of open reduction and internal fixation (ORIF) procedure (~08/24/13) intertrochanteric Fx right hip Family History Mother Heart disease COPD (chronic obstructive pulmonary disease) Father Alcohol use disorder Heart disease Brother Substance use disorder Social History Smoking/Tobacco Use Status: Former Tobacco Use tobacco type: cigarettes Quit Date: 08/29/14 Tobacco: How many years used: 41 Second Hand Exposure: Yes Smoking risk assessment performed?: Yes Alcohol Intake: former Details: Pt formerly chewed tobacco Drug use: Never Substance use type: does not use Caregiver/Support person: No Household members: none Housing: apartment Do you need help understanding health information?: Rarely Pets and animals: No Sexually active: No Do you think of yourself as: straight/heterosexual Current gender identity: male What is your relationship status?: How often do you talk on the phone with friends or family?: never How often do you get together with friends or relatives?: never How often do you attend spiritism or bahai services?: decline to answer Do you belong to any clubs or organized social groups?: decline to answer Panel score (0-1 are the most socially isolated patients): 0 Duration: < 15 minutes/day Frequency: 1-2 times per week Liss/Restorationist: No preference Special liss needs: No Additional Social history: Currently Homeless, ran out of O2 Meds Allergies and Home Medications Allergies Allergy/AdvReac Type Severity Reaction Status Date / Time Penicillins Allergy Unverified 07/14/23 00:32 Home Medications Medication Instructions Recorded Confirmed Type acetaminophen 500 mg tablet 500 mg PO Q6H PRN 10/05/21 07/14/23 History (Tylenol Extra Strength) theophylline 300 mg 150 mg (1/2 x 300 mg) PO BID #60 12/25/21 07/14/23 Rx tablet,extended release,12 hr tabs albuterol sulfate 90 mcg/actuation 2 puff inhalation Q6H PRN 07/05/23 07/14/23 Rx aerosol inhaler shortness of breath or wheezing #8.5 grams fluticasone fur. 100 mcg-umeclid 1 inh inhalation DAILY #60 ea 07/05/23 07/14/23 Rx 62.5 mcg-vilant 25 mcg inhalat.powder (Trelegy Ellipta) Exam Narrative Exam Narrative: General: Patient appears older than stated age, almost cachectic less than, intubated and sedated lying in bed comfortably. HEENT: Normocephalic, eyes with pupils equal react light symmetrically, extraocular movement passively, sclera anicteric. Oropharynx with dry mucosa and poor dentition. Patient is intubated. Neck: Supple without JVD. Heart: Tachycardic rate with normal rhythm. No murmurs gallops appreciated. Lungs: Bronchovesicular breath sounds diffusely with limited expiratory phase no focalizing rales or rhonchi. No expiratory wheeze. Slightly barrel chested. Abdomen: Scaphoid contour, soft nontender to palpation with no palpable hepatosplenomegaly. Central line is placed at left femoral artery with clean dressing. Details of physical exam deferred. Patient has a Castillo catheter in place. Extremities: Without clubbing, cyanosis or grossly pitting edema. Good capillary refill. Skin: Pale, warm and dry. Neuro: Cranial nerves II through XII grossly intact tested passively. No focal motor deficits the patient is sedated not moving. No tremor. Psych: Intubated and sedated. Patient at baseline has anxious affect with PTSD. Results Imaging Imaging Studies: Exam: XR Chest Exam date and time: 07/13/2023 22:35 Age: 62 years old Clinical indication: Device placement; Other: Post-intubation; Other: Hypoxic; Additional info: Post intubation, hypoxic TECHNIQUE: Imaging protocol: Radiologic exam of the chest. Views: 1 view. COMPARISON: CT CHEST LUNG CANCER SCREEN 12/25/2021 12:20 FINDINGS: Tubes, catheters and devices: Endotracheal tube terminates 6 cm above the henny. Lungs: Severe pulmonary emphysema again seen. No gross airspace consolidation. Pleural spaces: No pleural effusion. No pneumothorax. Heart/Mediastinum: Diminution of the cardiac silhouette in the setting of emphysema. Bones/joints: No acute fracture. IMPRESSION: 1. Endotracheal tube terminates 6 cm above the henny. 2. Severe pulmonary emphysema again seen. Labs 07/13/23 22:28 07/13/23 22:28 Labs: Laboratory Results - last 24 hr 07/13/23 07/13/23 07/13/23 22:28 22:30 22:55 WBC 8.43 RBC 4.03 L Hgb 11.7 L Hct 37.6 L MCV 93 MCH 29.0 MCHC 31.1 L RDW 12.7 Plt Count 175 MPV 10.0 Immature Gran % 0.2 Neutrophils % 65.0 Lymphocytes % 25.0 Monocytes % 8.9 Eosinophils % 0.7 Basophils % 0.2 Nucleated RBC % 0.0 Absolute Neutrophils 5.47 Absolute Lymphocytes 2.11 Absolute Monocytes 0.75 Absolute Eosinophils 0.06 Absolute Basophils 0.02 PT 10.9 INR 1.1 APTT 26.3 ABG Sample Site Unknown ABG pH 7.15 L* ABG pCO2 81 H* ABG pO2 462 H ABG HCO3 28 H ABG Total CO2 ABG O2 Saturation ABG Base Excess -1 VBG Lactate 2.0 H Sodium 139 Potassium 4.2 Chloride 103 Carbon Dioxide 31.1 Anion Gap 4.9 BUN 24 H Creatinine 0.8 Est GFR (CKD-EPI 2020) 98.83 Glucose 249 H Calcium 7.7 L Total Bilirubin 0.3 AST 28 ALT 24 Alkaline Phosphatase 79 Troponin I < 50 NT-Pro-B Natriuret Pep 102 Total Protein 6.1 L Albumin 3.0 L Procalcitonin < 0.1 TSH 6.09 H Free T4 1.07 Urine Color Urine Clarity Urine pH Ur Specific [place] Urine Protein Urine Ketones Urine Blood Urine Nitrite Urine Bilirubin Urine Urobilinogen Ur Leukocyte Esterase Urine RBC Urine WBC Ur Epithelial Cells Urine Crystals Urine Bacteria Urine Casts Urine Mucus Urine Other Ur Culture Indicated? Urine Glucose COVID-19 Source Nasopharynx SARS-CoV-2 (PCR) Negative Influenza Type A (PCR) Negative Influenza Type B (PCR) Negative RSV (PCR) Negative 07/13/23 23:25 WBC RBC Hgb Hct MCV MCH MCHC RDW Plt Count MPV Immature Gran % Neutrophils % Lymphocytes % Monocytes % Eosinophils % Basophils % Nucleated RBC % Absolute Neutrophils Absolute Lymphocytes Absolute Monocytes Absolute Eosinophils Absolute Basophils PT INR APTT ABG Sample Site ABG pH ABG pCO2 ABG pO2 ABG HCO3 ABG Total CO2 ABG O2 Saturation ABG Base Excess VBG Lactate Sodium Potassium Chloride Carbon Dioxide Anion Gap BUN Creatinine Est GFR (CKD-EPI 2020) Glucose Calcium Total Bilirubin AST ALT Alkaline Phosphatase Troponin I NT-Pro-B Natriuret Pep Total Protein Albumin Procalcitonin TSH Free T4 Urine Color Yellow Urine Clarity Sl Cloudy Urine pH 7.0 Ur Specific [place] >= 1.030 H Urine Protein 100 H Urine Ketones Negative Urine Blood Trace-intact H Urine Nitrite Negative Urine Bilirubin Negative Urine Urobilinogen 1.0 H Ur Leukocyte Esterase Negative Urine RBC 3-5 H Urine WBC 5-10 Ur Epithelial Cells Negative Urine Crystals Negative Urine Bacteria Moderate Urine Casts 3-5 Hyaline Urine Mucus Negative Urine Other Moderate Renal Ur Culture Indicated? Yes Urine Glucose 100 H COVID-19 Source SARS-CoV-2 (PCR) Influenza Type A (PCR) Influenza Type B (PCR) RSV (PCR) Last Vital Signs Pulse 141 H 07/14/23 00:26 Resp 18 07/14/23 00:30 BP 124/82 07/14/23 00:26 Pulse Ox 98 07/13/23 22:29 Time Spent Time spent with Patient: >75 minutes Time was spent: preparing to see the patient(eg.review tests), obtaining and/or reviewing separately otained hiistory, ordering medications,tests, procedures, referring, communicating with other health daycare director, indepentently interpreting results and care coordination
[2023-07-14] MEDS: Normal Saline 500 ML IV (00:37)
[2023-07-14 00:43] LABS: BE -2 mmol/L (-2-3); HCO3 25 mmol/L (22-26); pCO2 52 mmHg (35-45); pH 7.29 (7.35-7.45); pO2 90 mmHg (80-105); sO2 97 % (95-98); tCO2 23 mmol/L (23-27)
[2023-07-14 00:44] LABS: FIO2 40 %; Site Arterial Line
[2023-07-14] MEDS: Albuterol/Ipratropium 3 ML UPD VIAL UPD ×4 (01:51→18:15)
[2023-07-14] MEDS: CALCIUM GLUCONATE in NaCl 1 GM/50 ML BAG IVPB (02:06)
[2023-07-14] MEDS: Normal Saline 1,000 ML 150 ML IV (02:09)
[2023-07-14] MEDS: MORPHine 2 MG/ML SYR (02:37)
[2023-07-14 03:59] LABS: Troponin I < 50 ng/L (<or=60)
[2023-07-14] MEDS: Norepinephrine in D5W 8 MG/250 ML BAG 56.2 MG IV (04:40)
[2023-07-14] MEDS: PROPOFOL 1,000 MG/100 ML BTL 20.6 MG IV (06:03)
[2023-07-14 06:13] LABS: BE -3 mmol/L (-2-3); HCO3 23 mmol/L (22-26); pCO2 43 mmHg (35-45); pH 7.34 (7.35-7.45); pO2 82 mmHg (80-105); sO2 97 % (95-98); tCO2 21 mmol/L (23-27)
[2023-07-14 06:14] LABS: FIO2 40 %; Site Arterial Line
[2023-07-14] MEDS: Norepinephrine in D5W 8 MG/250 ML BAG 37.5 MG IV (06:15)
[2023-07-14 06:56] LABS: HCT 40.6 % (40.0-50.0); HGB 13.2 g/dL (13.5-17.5); MCH 29.2 pg (27.0-33.0); MCHC 32.5 % (32.0-36.0); MCV 90 fL (80-95); MPV 10.5 fL (8.0-11.0); Platelet Count 232 10^3/uL (130-400); RBC 4.52 10^6/uL (4.36-5.78); RDW 12.7 % (11.8-14.1); RDW-SD 42.3 fL; WBC 19.03 10^3/uL (4.4-10.8)
--- NOTE | 2023-07-14 07:04 | PUCC_ITS ---
General Date of Service Date of service: 07/14/23 Time of Service: 07:12 Reason for Admission to ICU: COPD Exacerbation Assessment and Plan Assessment and plan (1) COPD exacerbation: Status: Acute (2) Acute on chronic respiratory failure with hypoxia and hypercapnia: Status: Acute (3) Hyperglycemia: Status: Acute (4) Pneumonia: Status: Acute (5) Personal history of nicotine dependence: Status: Acute (6) Hypotension: Status: Acute Assessment and plan: This is a 62 yo mechanically ventilated for a COPD exacerbation. His ventilator settings were inappropriate overnight but were corrected this morning. He failed an SBT trial this morning with hypoxia, despite an increased FiO2. His SAT was a success and he was able to follow commands. He will need more time on the ventilator and will try to wean him again tomorrow. During his SAT, he was very anxious appearing so I will start Precedex to help facilitate his SBT tomorrow. With adjusting his vent setting his Levophed requirements did improve significantly. He was ordered for levofloxacin, due to a penicillin allergy, but there is <1% cross reactivity allergy rate with ceftriaxone, so I have switched his regimen to ceftriaxone to azithromycin. Recommendations Pulmonary: COPD Exacerbation - stop IV methylpred - start prednisone 40mg daily - Duonebs q6h Acute on chronic hypoxic and hypercapnic respiratory failure - mechanical ventilation: - volume control: TV 370, RR 16, FiO2 titrated for sats 88-92% - ABG today given vent changes - failed SBT today, will attempt again tomorrow Cardiac: Hypotension - autoPEEP versus sedation - Levophed as needed - POCUS with normal sized, plethoric IVC Renal: No acute concerns I&O: Intake & Output 07/11/23 07/12/23 07/13/23 07/14/23 23:59 23:59 23:59 23:59 Intake Total 904.255 / 904.255 Output Total 200 / 200 Balance 704.255 / 704.255 Weight 49.1 kg 47.8 kg Daily Fluid Goal:: even GI Nutrition: Nutrition - initiate tube feeds today, start at 5 - nutrition consult Infectious Disease: Pneumonia, possible - stop Levaquin - start ceftriaxone and azithromycin Hematologic: No acute concerns Neurologic: Sedation - propofol range 20-40 - Precedex order as adjunct - prn morphine changed from q1h to q3h - SAT successfull this morning - RASS goal 0 to -2 Endocrine: Hyperglycemia - SSI ordered Lines: L fem art line L fem CVC [place] ETT Prophylaxis: Lovenox Protonix added Code Status: Resuscitation Status Full Code Subjective Critical and life-threatening events over the past 24 hours: Jeronimo is a 62 yo with advanced emphysematous COPD who is a chronic retainer who has refused nocturnal NIV as an outpatient. He required intubation and mechanical ventilation for respiratory failure. Unfortunately overnight he had a far too high TV and RR which likely caused worsening air trapping, likely autoPEEP and subsequent worsened hypotension. I changed his TV to 6cc/kg (was set to 10cc/kg) and decreased the respiratory rate from 19 to 16. This immediately improved his breath sounds and blood pressure. Exam Narrative Exam Narrative: Gen: NAD, normal respiratory effort, thin HENT: PERRL Chest: No respiratory distress, normal appearance of chest, clear to auscultation bilaterally, no crackles or wheezes, normal inspiratory effort Heart: regular rate and rhythym, no murmurs, rubs or gallops Abdomen: Non-distended, soft, non tender Extremities: No clubbing, edema, cyanosis, rashes Neuro: AAOx3 , non focal Psych: cooperative, appropriate mental affect Most Recent VS/Results Last Vital Signs Temp 36.4 C L 07/14/23 06:49 Pulse 103 H 07/14/23 06:49 Resp 19 07/14/23 06:49 BP 121/75 07/14/23 06:49 Pulse Ox 96 07/14/23 06:30 Laboratory Results - last 24 hr 07/13/23 07/13/23 07/13/23 22:28 22:30 22:55 WBC 8.43 RBC 4.03 L Hgb 11.7 L Hct 37.6 L MCV 93 MCH 29.0 MCHC 31.1 L RDW 12.7 Plt Count 175 MPV 10.0 Immature Gran % 0.2 Neutrophils % 65.0 Lymphocytes % 25.0 Monocytes % 8.9 Eosinophils % 0.7 Basophils % 0.2 Nucleated RBC % 0.0 Absolute Neutrophils 5.47 Absolute Lymphocytes 2.11 Absolute Monocytes 0.75 Absolute Eosinophils 0.06 Absolute Basophils 0.02 PT 10.9 INR 1.1 APTT 26.3 ABG Sample Site Unknown ABG pH 7.15 L* ABG pCO2 81 H* ABG pO2 462 H ABG HCO3 28 H ABG Total CO2 ABG O2 Saturation ABG Base Excess -1 VBG Lactate 2.0 H FiO2 Sodium 139 Potassium 4.2 Chloride 103 Carbon Dioxide 31.1 Anion Gap 4.9 BUN 24 H Creatinine 0.8 Est GFR (CKD-EPI 2020) 98.83 Glucose 249 H Calcium 7.7 L Total Bilirubin 0.3 AST 28 ALT 24 Alkaline Phosphatase 79 Troponin I < 50 NT-Pro-B Natriuret Pep 102 Total Protein 6.1 L Albumin 3.0 L Procalcitonin < 0.1 TSH 6.09 H Free T4 1.07 Urine Color Urine Clarity Urine pH Ur Specific [place] Urine Protein Urine Ketones Urine Blood Urine Nitrite Urine Bilirubin Urine Urobilinogen Ur Leukocyte Esterase Urine RBC Urine WBC Ur Epithelial Cells Urine Crystals Urine Bacteria Urine Casts Urine Mucus Urine Other Ur Culture Indicated? Urine Glucose COVID-19 Source Nasopharynx SARS-CoV-2 (PCR) Negative Influenza Type A (PCR) Negative Influenza Type B (PCR) Negative RSV (PCR) Negative 07/13/23 07/14/23 07/14/23 23:25 00:35 03:36 WBC RBC Hgb Hct MCV MCH MCHC RDW Plt Count MPV Immature Gran % Neutrophils % Lymphocytes % Monocytes % Eosinophils % Basophils % Nucleated RBC % Absolute Neutrophils Absolute Lymphocytes Absolute Monocytes Absolute Eosinophils Absolute Basophils PT INR APTT ABG Sample Site Arterial Line ABG pH 7.29 L ABG pCO2 52 H ABG pO2 90 ABG HCO3 25 ABG Total CO2 23 ABG O2 Saturation 97 ABG Base Excess -2 VBG Lactate FiO2 40 Sodium Potassium Chloride Carbon Dioxide Anion Gap BUN Creatinine Est GFR (CKD-EPI 2020) Glucose Calcium Total Bilirubin AST ALT Alkaline Phosphatase Troponin I < 50 NT-Pro-B Natriuret Pep Total Protein Albumin Procalcitonin TSH Free T4 Urine Color Yellow Urine Clarity Sl Cloudy Urine pH 7.0 Ur Specific [place] >= 1.030 H Urine Protein 100 H Urine Ketones Negative Urine Blood Trace-intact H Urine Nitrite Negative Urine Bilirubin Negative Urine Urobilinogen 1.0 H Ur Leukocyte Esterase Negative Urine RBC 3-5 H Urine WBC 5-10 Ur Epithelial Cells Negative Urine Crystals Negative Urine Bacteria Moderate Urine Casts 3-5 Hyaline Urine Mucus Negative Urine Other Moderate Renal Ur Culture Indicated? Yes Urine Glucose 100 H COVID-19 Source SARS-CoV-2 (PCR) Influenza Type A (PCR) Influenza Type B (PCR) RSV (PCR) 07/14/23 07/14/23 05:55 06:08 WBC 19.03 H RBC 4.52 Hgb 13.2 L Hct 40.6 MCV 90 MCH 29.2 MCHC 32.5 RDW 12.7 Plt Count 232 MPV 10.5 Immature Gran % Neutrophils % Lymphocytes % Monocytes % Eosinophils % Basophils % Nucleated RBC % Absolute Neutrophils Absolute Lymphocytes Absolute Monocytes Absolute Eosinophils Absolute Basophils PT INR APTT ABG Sample Site Arterial Line ABG pH 7.34 L ABG pCO2 43 ABG pO2 82 ABG HCO3 23 ABG Total CO2 21 L ABG O2 Saturation 97 ABG Base Excess -3 L VBG Lactate FiO2 40 Sodium Potassium Chloride Carbon Dioxide Anion Gap BUN Creatinine Est GFR (CKD-EPI 2020) Glucose Calcium Total Bilirubin AST ALT Alkaline Phosphatase Troponin I NT-Pro-B Natriuret Pep Total Protein Albumin Procalcitonin TSH Free T4 Urine Color Urine Clarity Urine pH Ur Specific [place] Urine Protein Urine Ketones Urine Blood Urine Nitrite Urine Bilirubin Urine Urobilinogen Ur Leukocyte Esterase Urine RBC Urine WBC Ur Epithelial Cells Urine Crystals Urine Bacteria Urine Casts Urine Mucus Urine Other Ur Culture Indicated? Urine Glucose COVID-19 Source SARS-CoV-2 (PCR) Influenza Type A (PCR) Influenza Type B (PCR) RSV (PCR) Review of Systems Unobtainable due to endotracheal tube Time spent with patient Time spent in Critical Care: 60 Time spent in Critical care included: Performing procedures not included in c.c time, Coordination of care, Chart review, Documenting critically ill care, Time at immediate bedside and Discussing critically ill care with other medical staff Multi-Disciplinary Checklist Lines/Tubes CENTRAL LINE: yes, Central Line Day#: 1 ARTERIAL LINE: yes, Arterial Line Day#: 1 [place]: yes, [place] Day#: 1 ENDOTRACHEAL TUBE: yes, Endotracheal Tube Day#: 1 Sedation: yes, Sedation Vacation: yes Head of Bed@30 degrees: yes Spontaneous Breathing Trial: yes ICU Maintenance GLUCOSE 140-180mg/dL: no, Reason/Intervention: elevated, SSI ordered NUTRITION AT GOAL: no, Reason/Intervention: recommend starting tube feeds PRESSURE ULCER: no RESTRAINTS: yes, Reviewed Necessity: Yes ANTIBIOTICS(if yes, consider Stewardship): Yes Social Issues FAMILY UPDATED: no, Reason/Intervention: defer to hospitalist team PT/OT: no, Reason/Intervention: currently inappropriate GOALS/DISPOSITION/VISITOR SERVICES TECHNICIAN: no, Reason/Intervention: needs to be readdressed upon awakening CODE STATUS: Full Prophylaxis DVT PROPHYLAXIS: yes GI PROPHYLAXIS: yes, Indication: mechanical ventilation Pocus Exam Limited Cardiac Exam DATE OF EXAM: 07/14/23 TIME OF EXAM: 07:20 PROVIDER THAT PERFORMED THE STUDY: Cata Davalos IS THIS A REPEAT EXAM DURING THIS ENCOUNTER: no REASON FOR EXAM: Hypotension and Hypoxia VISUALIZED STRUCTURES: four chambers, aortic valve, mitral valve, Interventricular septum and IVC VIEW OBTAINED: Subxiphoid PERTINENT FINDINGS/IMPRESSION: Plethoric IVC (on mechanical ventilation) Exam complete Limited Thoracic Lung Exam DATE OF EXAM: 07/14/23 TIME OF EXAM: 07:20 IS THIS A REPEAT EXAM DURING THIS ENCOUNTER: No REASON FOR EXAM: COPD, Hypotension and Hypoxia VISUALIZED STRUCTURES: right anterior and left anterior PERTINENT FINDINGS/IMPRESSION: No apparent abnormalities Exam complete
[2023-07-14 07:20] LABS: ALT 37 U/L (16-63); AST 36 U/L (15-37); Albumin 3.2 g/dL (3.4-5.0); Alkaline Phosphatase 89 U/L (46-116); Anion Gap 12.1 mmol/L (3-11); BUN 25 mg/dL (7-18); Bilirubin, Total 0.3 mg/dL (0.2-1.0); CO2 22.9 mmol/L (21.0-32.0); Calcium 8.9 mg/dL (8.5-10.1); Chloride 102 mmol/L (98-107); Estimated GFR 84.05 (mL/min/1.73m2); Glucose 386 mg/dL (74-106); Potassium 3.9 mmol/L (3.5-5.1); Sodium 137 mmol/L (136-145); Total Protein 6.4 g/dL (6.4-8.2)
[2023-07-14 07:41] LABS: Magnesium 2.1 mg/dL (1.8-2.4); PHOSPHORUS 2.9 mg/dL (2.6-4.7)
[2023-07-14] MEDS: MORPHine 2 MG/ML SYR IVP ×3 (07:45→23:46)
[2023-07-14] MEDS: dexmedeTOMidine IN 0.9 % NACL 400 MCG/100 ML BTL IV (08:49)
[2023-07-14] MEDS: predniSONE 20 MG TAB 40 MG PO (09:15)
[2023-07-14] MEDS: Enoxaparin 40 MG/0.4 ML SYR SC (09:15)
[2023-07-14] MEDS: cefTRIAXone 1 GM/50 ML BAG IVPB (09:22)
--- NOTE | 2023-07-14 09:34 | W.PM.PROGNOT ---
Date of Service Date of service: 07/14/23 Time of Service: 09:34 Assessment and Plan Assessment and plan (1) Acute hypercapnic respiratory failure: Status: Acute Assessment and plan: - Patient has longstanding history of COPD, called EMS due to shortness of breath -Was intubated in the field -Failed spontaneous breathing trial this morning with hypoxia though patient was able to follow commands -Appreciate critical care consultation and recommendations: -Stop IV methylprednisolone and start prednisone 40 mg daily -DuoNebs every 6 hours -Continue with the following vent changes: Tidal volume 370, respiratory rate 16, FiO2 titrated for saturations 88 to 92% -Follow-up post vent change ABG (2) COPD exacerbation: Status: Acute Assessment and plan: -Continue nebulizer and ventilation changes as noted above -Continue azithromycin and levofloxacin (3) Hypotension: Status: Acute Assessment and plan: - Patient required Levophed overnight -However, this was likely secondary to auto PEEP as patient was not on appropriate vent settings -Wean Levophed as tolerated as per protocol Qualifiers: Hypotension type: other hypotension type Qualified Code(s): I95.89 - Other hypotension (4) Hyperglycemia without ketosis: Status: Acute Assessment and plan: - likely due to steroid use -Continue to monitor (5) Hypocalcemia: Status: Acute Assessment and plan: -Patient did receive 2 g of magnesium sulfate for treatment of COVID exacerbation and respiratory failure -IV calcium gluconate and monitor labs daily. (6) PTSD (post-traumatic stress disorder): Status: Chronic Subjective Subjective Interval history since last seen: Patient intubated and sedated Exam Narrative Exam Narrative: Chronically ill-appearing cachectic gentleman laying in bed, intubated and sedated, appears older than stated age, lung sounds diminished bilaterally, heart regular rate and rhythm, abdomen soft, nontender, nondistended Objective Last Vital Signs Temp 98.2 F 07/14/23 08:20 Pulse 125 H 07/14/23 08:11 Resp 24 07/14/23 08:20 BP 162/71 H 07/14/23 08:11 Pulse Ox 91 L 07/14/23 08:20 Laboratory Results - last 24 hr 07/13/23 07/13/23 07/13/23 22:28 22:30 22:55 WBC 8.43 RBC 4.03 L Hgb 11.7 L Hct 37.6 L MCV 93 MCH 29.0 MCHC 31.1 L RDW 12.7 Plt Count 175 MPV 10.0 Immature Gran % 0.2 Neutrophils % 65.0 Lymphocytes % 25.0 Monocytes % 8.9 Eosinophils % 0.7 Basophils % 0.2 Nucleated RBC % 0.0 Absolute Neutrophils 5.47 Absolute Lymphocytes 2.11 Absolute Monocytes 0.75 Absolute Eosinophils 0.06 Absolute Basophils 0.02 PT 10.9 INR 1.1 APTT 26.3 ABG Sample Site Unknown ABG pH 7.15 L* ABG pCO2 81 H* ABG pO2 462 H ABG HCO3 28 H ABG Total CO2 ABG O2 Saturation ABG Base Excess -1 VBG Lactate 2.0 H FiO2 Sodium 139 Potassium 4.2 Chloride 103 Carbon Dioxide 31.1 Anion Gap 4.9 BUN 24 H Creatinine 0.8 Est GFR (CKD-EPI 2020) 98.83 Glucose 249 H Calcium 7.7 L Phosphorus Magnesium Total Bilirubin 0.3 AST 28 ALT 24 Alkaline Phosphatase 79 Troponin I < 50 NT-Pro-B Natriuret Pep 102 Total Protein 6.1 L Albumin 3.0 L Procalcitonin < 0.1 TSH 6.09 H Free T4 1.07 Urine Color Urine Clarity Urine pH Ur Specific [place] Urine Protein Urine Ketones Urine Blood Urine Nitrite Urine Bilirubin Urine Urobilinogen Ur Leukocyte Esterase Urine RBC Urine WBC Ur Epithelial Cells Urine Crystals Urine Bacteria Urine Casts Urine Mucus Urine Other Ur Culture Indicated? Urine Glucose COVID-19 Source Nasopharynx SARS-CoV-2 (PCR) Negative Influenza Type A (PCR) Negative Influenza Type B (PCR) Negative RSV (PCR) Negative 07/13/23 07/14/23 07/14/23 23:25 00:35 03:36 WBC RBC Hgb Hct MCV MCH MCHC RDW Plt Count MPV Immature Gran % Neutrophils % Lymphocytes % Monocytes % Eosinophils % Basophils % Nucleated RBC % Absolute Neutrophils Absolute Lymphocytes Absolute Monocytes Absolute Eosinophils Absolute Basophils PT INR APTT ABG Sample Site Arterial Line ABG pH 7.29 L ABG pCO2 52 H ABG pO2 90 ABG HCO3 25 ABG Total CO2 23 ABG O2 Saturation 97 ABG Base Excess -2 VBG Lactate FiO2 40 Sodium Potassium Chloride Carbon Dioxide Anion Gap BUN Creatinine Est GFR (CKD-EPI 2020) Glucose Calcium Phosphorus Magnesium Total Bilirubin AST ALT Alkaline Phosphatase Troponin I < 50 NT-Pro-B Natriuret Pep Total Protein Albumin Procalcitonin TSH Free T4 Urine Color Yellow Urine Clarity Sl Cloudy Urine pH 7.0 Ur Specific [place] >= 1.030 H Urine Protein 100 H Urine Ketones Negative Urine Blood Trace-intact H Urine Nitrite Negative Urine Bilirubin Negative Urine Urobilinogen 1.0 H Ur Leukocyte Esterase Negative Urine RBC 3-5 H Urine WBC 5-10 Ur Epithelial Cells Negative Urine Crystals Negative Urine Bacteria Moderate Urine Casts 3-5 Hyaline Urine Mucus Negative Urine Other Moderate Renal Ur Culture Indicated? Yes Urine Glucose 100 H COVID-19 Source SARS-CoV-2 (PCR) Influenza Type A (PCR) Influenza Type B (PCR) RSV (PCR) 07/14/23 07/14/23 05:55 06:08 WBC 19.03 H RBC 4.52 Hgb 13.2 L Hct 40.6 MCV 90 MCH 29.2 MCHC 32.5 RDW 12.7 Plt Count 232 MPV 10.5 Immature Gran % Neutrophils % Lymphocytes % Monocytes % Eosinophils % Basophils % Nucleated RBC % Absolute Neutrophils Absolute Lymphocytes Absolute Monocytes Absolute Eosinophils Absolute Basophils PT INR APTT ABG Sample Site Arterial Line ABG pH 7.34 L ABG pCO2 43 ABG pO2 82 ABG HCO3 23 ABG Total CO2 21 L ABG O2 Saturation 97 ABG Base Excess -3 L VBG Lactate FiO2 40 Sodium 137 Potassium 3.9 Chloride 102 Carbon Dioxide 22.9 Anion Gap 12.1 H BUN 25 H Creatinine 1.0 Est GFR (CKD-EPI 2020) 84.05 Glucose 386 H Calcium 8.9 Phosphorus 2.9 Magnesium 2.1 Total Bilirubin 0.3 AST 36 ALT 37 Alkaline Phosphatase 89 Troponin I NT-Pro-B Natriuret Pep Total Protein 6.4 Albumin 3.2 L Procalcitonin TSH Free T4 Urine Color Urine Clarity Urine pH Ur Specific [place] Urine Protein Urine Ketones Urine Blood Urine Nitrite Urine Bilirubin Urine Urobilinogen Ur Leukocyte Esterase Urine RBC Urine WBC Ur Epithelial Cells Urine Crystals Urine Bacteria Urine Casts Urine Mucus Urine Other Ur Culture Indicated? Urine Glucose COVID-19 Source SARS-CoV-2 (PCR) Influenza Type A (PCR) Influenza Type B (PCR) RSV (PCR) Time Spent with Patient Time Spent with Patient: >50 minutes Time was spent: preparing to see the patient(eg.review tests), obtaining and/or reviewing separately otained hiistory, ordering medications,tests, procedures, referring, communicating with other health intensive care specialist, indepentently interpreting results, counseling the patient, care coordination and other (Roughly 60 minutes was spent providing critical care time to patient with acute hypoxic and hypercapnic respiratory failure currently on mechanical ventilation)
[2023-07-14] MEDS: Insulin Aspart 300 UNITS/3 ML PEN SC (10:05)
[2023-07-14] MEDS: AZITHROMYCIN 500 MG in Normal Saline 250 ML 250 MG IVPB (10:25)
--- NOTE | 2023-07-14 10:29 | W.NUTCONSULT ---
Date of service: 07/14/23 Time of Service: 10:29 Nutritional Consult ASSESSMENT: Mr Mendez is 62yo male currently on mechanical ventilation secondary to respiratory failure. Hi current BMI indicates underweight status and his weight history indicates a 4.4kg wt loss over the span of about 2 years. No history of diabetes but glucose being monitored due to current steroid use Current estimated nutrition needs : 1800 kcals ([id number]), 72g protein (1.5g/kg current body weight) and 1800mL fluid (1 mL per required kcal) INTERVENTION: To support pt's nutritional needs while mechanically ventilated without po intake, I would recommend Nutren 2.0 enteral formula run continuously over 24 hours at 37.5mL/hour over the first 48 hours of admission. This would be a total of 900mL of formula, which would provide 1800kcals (100% of current estimated needs), 75.6g protein (105% of estimated protein needs), and 623mL of fluid (meets 34.6% of fluid needs). Pt's remaining fluid needs of 1177mL will be met with IV fluids and should be taken into consideration as well as contribution of lipid kcals of propofol, which at a current rate of 20.6ml per hour is contributing 543kcals every 24 hours in lipid. To monitor for overfeeding syndrome recommend frequent potassium, phos, and sodium labs. Would also recommend triglyceride labs with the current use of propofol MONITORING AND EVALUATION: Will monitor electrolytes, glucose, triglycerides, weight and toleration of enteral formula and will put in recommendations as pt's needs change or adjustments are clinically recommended. Time Spent in Nutritional Counseling and Treatment: 60 minutes
--- NOTE | 2023-07-14 12:32 | NUR.NOTE ---
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 Titrations for propofol completed as follows: 0719- paused 0749- 40mcg/kg/min 0800-80mcg/kg/min 0805- 70mcg/kg/min 0811- 80mcg/kg/min 0913- 70mcg/kg/min 0917- paused 0927- 40mcg/kg/min 0945- 50mcg/kg/min 0947- 80mcg/kg/min 0952- 40mcg/kg/min 1108- 35mcg/kg/min
[2023-07-14] MEDS: PROPOFOL 1,000 MG/100 ML BTL 10.038 MG IV ×2 (13:29→22:49)
[2023-07-14] MEDS: Normal Saline Flush 10 ML SYR IVP ×3 (15:43→23:46)
--- NOTE | 2023-07-14 16:27 | INITIAL_ITS ---
Date of service: 07/14/23 Time of Service: 16:27 Care Management Initial Assmt Initial Assessment REASON FOR HOSPITALIZATION:: Acute hypercapnic respiratory failure PREVIOUS FUNCTIONAL STATUS/SOCIAL/FAMILY SUPPORTS:: Jeronimo lives in [facility]. He has support from [facility]; [facility]. Jeronimo is currently intubated, therefore information is limited to chart review. CURRENT FUNCTIONAL STATUS:: Per report, Jeronimo remains intubated in the ICU, therefore CM is not able to have a conversation with Jeronimo. He does not have anyone listed on his HIPAA. He has a history of COPD, and is being followed by Pulmonology. CM will continue to follow. ADVANCE DIRECTIVES:: Not on file at [facility]. Has patient been provided with info about the portal/API?: Yes Did the patient sign up for the portal?: No CODE STATUS:: Full Code INSURANCE COVERAGE / FINANCIAL ISSUES:: [facility]. [place]. CURRENT HOME/COMMUNITY SERVICES/EQUIPMENT:: [facility] PRIMARY CARE PHYSICIAN:: Shan Do POTENTIAL DISCHARGE NEEDS:: Evaluations for further needs, follow up appointment s. PATIENT/FAMILY EDUCATION NEEDS:: Review discharge instructions and limitations, discussion of self care needs including ask me three. ANTICIPATED BARRIERS TO DISCHARGE:: Pt currently intubated. TRANSPORTATION:: To be determined by disposition. PLAN:: Jeronimo is currently intubated in the ICU, being followed by hospitalist and pulmonology. His discharge plan is unclear at this time; dependent on progress. Anticipate return home vs transfer, if not improving. CM will continue to follow. PFSH All Active Problems Hypotension (Acute) Pneumonia (Acute) Hyperglycemia (Acute) Acute on chronic respiratory failure with hypoxia and hypercapnia (Acute) Hypocalcemia (Acute) Hyperglycemia without ketosis (Acute) COPD exacerbation (Acute) Acute hypercapnic respiratory failure (Acute) Respiratory failure with hypoxia and hypercapnia (Acute) Hyperlipidemia (Acute) Tubular adenoma of colon (Acute) Depressive disorder (Chronic) Patient with inpatient mental health admission in [facility] system-unclear diagnosis-patient attributes to flare social stressors-no subsequent follow-up since moving to [place]. Symptoms currently quiet as of 10/1999 Degenerative joint disease involving multiple joints (Acute) Weight loss (Acute) PTSD (post-traumatic stress disorder) (Chronic) Personal history of nicotine dependence (Acute) 09/2021-about a 26-nfel-graf history of smoking, patient quit 11/2020-Chest cT screen-unremarkable Essential hypertension (Acute) COPD (chronic obstructive pulmonary disease) (Chronic) O2 dependent Housing instability (Acute) Surgical History H/O lumpectomy (~08/08/07) large sebaceous cyst removed from right index finger History of open reduction and internal fixation (ORIF) procedure (~08/24/13) intertrochanteric Fx right hip Family History Mother Heart disease COPD (chronic obstructive pulmonary disease) Father Alcohol use disorder Heart disease Brother Substance use disorder Social History Smoking/Tobacco Use Status: Former Tobacco Use tobacco type: cigarettes Quit Date: 08/29/14 Tobacco: How many years used: 41 Second Hand Exposure: Yes Smoking risk assessment performed?: Yes Alcohol Intake: former Details: Pt formerly chewed tobacco Drug use: Never Substance use type: does not use Caregiver/Support person: No Household members: none Housing: other Do you need help understanding health information?: Rarely Pets and animals: No Sexually active: No Do you think of yourself as: straight/heterosexual Current gender identity: male What is your relationship status?: How often do you talk on the phone with friends or family?: never How often do you get together with friends or relatives?: never How often do you attend jewish or spiritism services?: decline to answer Do you belong to any clubs or organized social groups?: decline to answer Panel score (0-1 are the most socially isolated patients): 0 Duration: < 15 minutes/day Frequency: 1-2 times per week Liss/Uatsdin: No preference Special liss needs: No Additional Social history: Currently Homeless, ran out of O2
[2023-07-14] MEDS: Norepinephrine in D5W 8 MG/250 ML BAG 11.25 MG IV (17:16)
--- NOTE | 2023-07-14 17:20 | CHAPLAIN ---
Jeronimo remains intubated and sedated. There have not been any visitors for Jeronimo according to ICU staff. I brought Jeronimo a prayer shawl and will continue to visit.
--- NOTE | 2023-07-14 17:30 | DI.RAD_ITS ---
Exam(s) XR PORTABLE CHEST AP POST LINE EXAM: XR PORTABLE CHEST AP POST LINE CLINICAL HISTORY: check ET tube placement. TECHNIQUE: 2D digital imaging was performed. COMPARISON: CR,XR XR PORTABLE CHEST AP from 07/13/2023 FINDINGS: Single AP portable view. ET tube position is at the level the aortic knob above the henny. The actual henny is difficult to determine on this image. Nevertheless, is most probably above the henny in satisfactory position. There is an NG tube also noted in the stomach. Mild increased markings in the left lung base. No confluent infiltrates. No pleural effusions. No pneumothorax. IMPRESSION: As above. DATA REPOSITORY: RADIATION DOSE DELIVERED:
[2023-07-14] MEDS: dexmedeTOMidine IN 0.9 % NACL 400 MCG/100 ML BTL 9.56 MCG IV (21:22)
[2023-07-15] VITALS (117 sets, daily range): BP systolic 60–167; BP diastolic 48–112; PULSE 61–127; RESP 2–32; TEMP 31–37.5; O2SAT 79–99
[2023-07-15] MEDS: Albuterol/Ipratropium 3 ML UPD VIAL UPD ×5 (00:05→23:32)
[2023-07-15] MEDS: PROPOFOL 1,000 MG/100 ML BTL 11.472 MG IV (06:15)
[2023-07-15 06:46] LABS: HCT 34.4 % (40.0-50.0); HGB 11.1 g/dL (13.5-17.5); MCH 29.3 pg (27.0-33.0); MCHC 32.3 % (32.0-36.0); MCV 91 fL (80-95); MPV 10.8 fL (8.0-11.0); Platelet Count 158 10^3/uL (130-400); RBC 3.79 10^6/uL (4.36-5.78); RDW 13.2 % (11.8-14.1); RDW-SD 43.8 fL; WBC 13.18 10^3/uL (4.4-10.8)
--- NOTE | 2023-07-15 06:59 | W.PULMCC ---
General Date of Service Date of service: 07/15/23 Time of Service: 06:59 Reason for Admission to ICU: COPD Exacerbation Assessment and Plan Assessment and plan (1) COPD exacerbation: Status: Acute (2) Acute on chronic respiratory failure with hypoxia and hypercapnia: Status: Acute (3) Hyperglycemia: Status: Acute (4) Pneumonia: Status: Acute (5) Personal history of nicotine dependence: Status: Acute (6) Hypotension: Status: Acute Assessment and plan: This is a 62 yo mechanically ventilated for a COPD exacerbation. He looks much better today. His PetCO2 is in the 40's and he is much more synchronous with the ventilator. Precedex is still running during SBT to help with anxiety/panic. He is doing well on a 5/5 SBT at 35%. He is at risk of re-intubation, so I do recommend extubation to HFNC for preventative measures. I would recommend HFNC for 24 hours post extubation to prevent re-intubation. Qualifiers: Hypotension type: other hypotension type Qualified Code(s): I95.89 - Other hypotension Recommendations Pulmonary: COPD Exacerbation - prednisone 40mg daily for a total of 7 days, then: 30mg for 3 days, 20mg for 3 days, 10mg for 3 days, 5mg for 3 days - Duonebs q6h Acute on chronic hypoxic and hypercapnic respiratory failure - mechanical ventilation: - volume control: TV 370, RR 16, FiO2 titrated for sats 88-92% - plan on extubation to HFNC, 60L, titrate FiO2 Cardiac: Hypotension, improved - no need while off sedation - recommend D/C central line if able to maintain without pressors once extubated Renal: No acute concerns I&O: Intake & Output 07/12/23 07/13/23 07/14/23 07/15/23 23:59 23:59 23:59 23:59 Intake Total 3675.020 / 3721.991 183.256 / 183.256 Output Total 1924 / 2024 360 / 360 Balance 1750.020 / 1696.991 -176.744 / -176.744 Weight 49.1 kg 47.8 kg 49.1 kg Daily Fluid Goal:: even GI Nutrition: Nutrition - bedside nursing swallow test and if no issues can start a diet Infectious Disease: Pneumonia, possible - ceftriaxone and azithromycin for a 5 day course Hematologic: No acute concerns Neurologic: Sedation - wean off Precedex today Endocrine: Hyperglycemia, improved - SSI ordered Lines: L fem CVC - recommend removal Mujica - recommend removal ETT - plan to remove today Prophylaxis: Lovenox Protonix- can D/C after extubation Code Status: Resuscitation Status Full Code Subjective Critical and life-threatening events over the past 24 hours: He failed his SBT yesterday due to hypoxia, however this morning he is doing much better. He has Precedex on a low to moderate dose to help with anxiety and has done well on a 5/5 35% SBT. He is awake and responsive and does follow commands. We will plan to extubated to high flow today. Exam Narrative Exam Narrative: Gen: NAD, normal respiratory effort, thin HENT: PERRL Chest: No respiratory distress, normal appearance of chest, clear to auscultation bilaterally, no crackles or wheezes, normal inspiratory effort Heart: regular rate and rhythym, no murmurs, rubs or gallops Abdomen: Non-distended, soft, non tender Extremities: No clubbing, edema, cyanosis, rashes Neuro: AAOx3 , non focal Psych: cooperative, appropriate mental affect Most Recent VS/Results Last Vital Signs Temp 36.8 C 07/15/23 06:01 Pulse 68 07/15/23 06:32 Resp 16 07/15/23 06:32 BP 128/77 07/15/23 06:01 Pulse Ox 98 07/15/23 06:32 Laboratory Results - last 24 hr 07/14/23 07/15/23 05:55 05:45 WBC 19.03 H 13.18 H RBC 4.52 3.79 L Hgb 13.2 L 11.1 L D Hct 40.6 34.4 L MCV 90 91 MCH 29.2 29.3 MCHC 32.5 32.3 RDW 12.7 13.2 Plt Count 232 158 MPV 10.5 10.8 Sodium 137 Potassium 3.9 Chloride 102 Carbon Dioxide 22.9 Anion Gap 12.1 H BUN 25 H Creatinine 1.0 Est GFR (CKD-EPI 2020) 84.05 Glucose 386 H Calcium 8.9 Phosphorus 2.9 Magnesium 2.1 Total Bilirubin 0.3 AST 36 ALT 37 Alkaline Phosphatase 89 Total Protein 6.4 Albumin 3.2 L Review of Systems Unobtainable due to endotracheal tube Time spent with patient Time spent in Critical Care: 60 Time spent in Critical care included: Coordination of care, Chart review, Documenting critically ill care, Time at immediate bedside and Discussing critically ill care with other medical staff Multi-Disciplinary Checklist Lines/Tubes CENTRAL LINE: yes, Central Line Day#: 2 ARTERIAL LINE: no MUJICA: yes, Mujica Day#: 2 ENDOTRACHEAL TUBE: yes, Endotracheal Tube Day#: 2 Sedation: yes, Sedation Vacation: yes Head of Bed@30 degrees: yes Spontaneous Breathing Trial: yes ICU Maintenance GLUCOSE 140-180mg/dL: yes NUTRITION AT GOAL: no, Reason/Intervention: plan for diet after extubation PRESSURE ULCER: no RESTRAINTS: yes, Reviewed Necessity: Yes ANTIBIOTICS(if yes, consider Stewardship): Yes Social Issues FAMILY UPDATED: no, Reason/Intervention: defer to hospitalist team PT/OT: no, Reason/Intervention: currently inappropriate GOALS/DISPOSITION/INDUSTRIAL LOCOMOTIVE OPERATOR: no, Reason/Intervention: needs to be readdressed upon awakening CODE STATUS: Full Prophylaxis DVT PROPHYLAXIS: yes GI PROPHYLAXIS: yes, Indication: mechanical ventilation
[2023-07-15 07:08] LABS: Anion Gap 5.6 mmol/L (3-11); BUN 17 mg/dL (7-18); CO2 32.4 mmol/L (21.0-32.0); CREATININE 0.6 mg/dL (0.70-1.30); Chloride 106 mmol/L (98-107); Glucose 126 mg/dL (74-106); Potassium 4.7 mmol/L (3.5-5.1); Sodium 144 mmol/L (136-145)
[2023-07-15] MEDS: dexmedeTOMidine IN 0.9 % NACL 400 MCG/100 ML BTL 8.365 MCG IV (07:53)
--- NOTE | 2023-07-15 08:33 | RESPIRATORY ---
3L home O2 at rest and with ambulation. DME: Juliane
[2023-07-15] MEDS: Tiotropium Bromide-Respimat 10 PUFF INH 2 PUFF IH (08:45)
[2023-07-15] MEDS: Budesonide/Formoterol 160/4.5 6 GM 60 PUFF INH IH ×2 (08:45→20:00)
[2023-07-15] MEDS: cefTRIAXone 1 GM/50 ML BAG IVPB (08:57)
[2023-07-15] MEDS: AZITHROMYCIN 500 MG in Normal Saline 250 ML 250 MG IVPB (08:59)
[2023-07-15] MEDS: Enoxaparin 40 MG/0.4 ML SYR SC (09:08)
[2023-07-15] MEDS: predniSONE 20 MG TAB 40 MG PO (09:13)
--- NOTE | 2023-07-15 09:17 | CMPROGNOTE_ITS ---
Date of service: 07/15/23 Time of Service: 09:17 Care Management Progress Note Progress Note Text Progress Note Text: S/O: Jeronimo was sitting up on the edge of his bed when CM met with him. He is on hi flow O2, and his RN was adjusting his monitor, as his sats were low. Per report, he was extubated today, and has transitioned to hi flow O2. He stated that he is on 4LO2 at baseline. He reported that he lives alone, and receives some support from [facility], but otherwise does not have family or friends for support. He is agreeable to services upon discharge, but he was not agreeable, at that time, to going to a SNF for short term rehab. He will benefit from a PT consult once his O2 is better controlled. CM will continue to follow. A: Jeronimo is a 62 year old male admitted to [facility] on 07/13/23 for acute hypercapnic respiratory failure. P: Jeronimo is currently intubated in the ICU, being followed by hospitalist and pulmonology. His discharge plan is unclear at this time; dependent on progress. Anticipate return home vs transfer, if not improving. CM will continue to follow.
--- NOTE | 2023-07-15 10:28 | W.PM.PROGNOT ---
Date of Service Date of service: 07/15/23 Time of Service: 10:28 Assessment and Plan Assessment and plan (1) Acute hypercapnic respiratory failure: Status: Acute Assessment and plan: - Patient has longstanding history of COPD, called EMS due to shortness of breath -Was intubated in the field -Successfully extubated on the morning of 07/15/2023 to high flow nasal cannula which should be in place for 24 hours -Appreciate critical care consultation and recommendations: -Continue prednisone 40 mg daily for 7 days, followed by 30 mg for 3 days, 20 mg for 3 days, 10 mg for 3 days, and 5 mg for 3 days -Continue DuoNebs every 6 hours (2) COPD exacerbation: Status: Acute Assessment and plan: -Continue azithromycin and levofloxacin (3) Hypotension: Status: Acute Assessment and plan: - Patient required Levophed overnight of admission -Levophed has since been weaned -Recommend removing central line if patient remains off pressors Qualifiers: Hypotension type: other hypotension type Qualified Code(s): I95.89 - Other hypotension (4) Hyperglycemia without ketosis: Status: Acute Assessment and plan: - likely due to steroid use -Continue to monitor (5) Hypocalcemia: Status: Acute Assessment and plan: -Patient did receive 2 g of magnesium sulfate for treatment of COVID exacerbation and respiratory failure -IV calcium gluconate and monitor labs daily. (6) PTSD (post-traumatic stress disorder): Status: Chronic Subjective Subjective Interval history since last seen: Patient Hi-Flow nasal cannula on, sitting up in the bed, stating that his breathing does feel better but that he is highly anxious, otherwise has no other complaints or concerns at this time. Exam Narrative Exam Narrative: Frail, chronically ill-appearing cachectic gentleman sitting up at the edge of the bed with high flow nasal cannula in place appearing somewhat anxious, AOx4, heart regular rate rhythm, lungs diminished throughout though audible wheezing is heard throughout, abdomen soft, nontender nondistended Objective Last Vital Signs Temp 99.0 F 07/15/23 08:56 Pulse 106 H 07/15/23 09:30 Resp 25 H 07/15/23 09:30 BP 102/73 07/15/23 09:30 Pulse Ox 91 L 07/15/23 09:30 Laboratory Results - last 24 hr 07/15/23 05:45 WBC 13.18 H RBC 3.79 L Hgb 11.1 L D Hct 34.4 L MCV 91 MCH 29.3 MCHC 32.3 RDW 13.2 Plt Count 158 MPV 10.8 Sodium 144 Potassium 4.7 Chloride 106 Carbon Dioxide 32.4 H Anion Gap 5.6 BUN 17 Creatinine 0.6 L Est GFR (CKD-EPI 2020) 107.80 Glucose 126 H Calcium 9.0 Time Spent with Patient Time Spent with Patient: >50 minutes Time was spent: preparing to see the patient(eg.review tests), obtaining and/or reviewing separately otained hiistory, ordering medications,tests, procedures, referring, communicating with other health palliative care coordinator, indepentently interpreting results, counseling the patient and care coordination
[2023-07-15] MEDS: Albuterol 2.5 MG/3 ML INH SOLN VIAL UPD (16:06)
[2023-07-15 16:29] LABS: BE (Venous) 11 mmol/L (-2-3); HCO3 (Venous) 37 mmol/L (23-28); O2 Sat (Venous) 50 %; TCO2 (Venous) 34 mmol/L (24-29); pH (Venous) 7.34 (7.31-7.41); pO2 (Venous) 29 mmHg
[2023-07-15 16:33] LABS: pCO2 (Venous) 69 mmHg (41-51)
[2023-07-15 20:50] LABS: BE (Venous) 12 mmol/L (-2-3); HCO3 (Venous) 37 mmol/L (23-28); O2 Sat (Venous) 41 %; TCO2 (Venous) 34 mmol/L (24-29); pH (Venous) 7.39 (7.31-7.41); pO2 (Venous) 25 mmHg
[2023-07-15 20:52] LABS: pCO2 (Venous) 62 mmHg (41-51)
[2023-07-15] MEDS: Normal Saline Flush 10 ML SYR IVP (23:33)
[2023-07-16] VITALS (22 sets, daily range): BP systolic 138–183; BP diastolic 69–96; PULSE 75–113; RESP 2–20; TEMP 31–36.9; O2SAT 92–98
[2023-07-16] MEDS: Albuterol/Ipratropium 3 ML UPD VIAL UPD ×3 (05:27→23:19)
[2023-07-16 06:46] LABS: HCT 38.6 % (40.0-50.0); HGB 12.7 g/dL (13.5-17.5); MCH 29.5 pg (27.0-33.0); MCHC 32.9 % (32.0-36.0); MCV 90 fL (80-95); MPV 10.6 fL (8.0-11.0); Platelet Count 167 10^3/uL (130-400); RDW-SD 42.5 fL; WBC 11.18 10^3/uL (4.4-10.8)
[2023-07-16 07:10] LABS: Anion Gap 2.9 mmol/L (3-11); BUN 19 mg/dL (7-18); CO2 36.1 mmol/L (21.0-32.0); CREATININE 0.7 mg/dL (0.70-1.30); Calcium 9.8 mg/dL (8.5-10.1); Chloride 101 mmol/L (98-107); Estimated GFR 102.89 (mL/min/1.73m2); Glucose 80 mg/dL (74-106); Potassium 4.1 mmol/L (3.5-5.1); Sodium 140 mmol/L (136-145)
[2023-07-16] MEDS: Budesonide/Formoterol 160/4.5 6 GM 60 PUFF INH IH ×2 (08:00→19:24)
[2023-07-16] MEDS: Tiotropium Bromide-Respimat 10 PUFF INH 2 PUFF IH (08:01)
[2023-07-16] MEDS: predniSONE 20 MG TAB 40 MG PO (09:58)
[2023-07-16] MEDS: cefTRIAXone 1 GM/50 ML BAG IVPB (09:59)
[2023-07-16] MEDS: Enoxaparin 40 MG/0.4 ML SYR SC (09:59)
[2023-07-16] MEDS: AZITHROMYCIN 500 MG in Normal Saline 250 ML 250 MG IVPB (10:10)
--- NOTE | 2023-07-16 17:19 | W.PM.PROGNOT ---
Date of Service Date of service: 07/16/23 Time of Service: 10:30 Assessment and Plan Assessment and plan (1) Acute hypercapnic respiratory failure: Status: Acute Assessment and plan: Acute hypoxic and hypercapnic respiratory failure. The patient is tolerating NC and is not requiring BiPAP. His pCO2 has actually been improving. Continue scheduled + prn nebs, symbicort, prednisone, azthromycin/ceftriaxone. No obvious PNA on CXR. (2) COPD exacerbation: Status: Acute Assessment and plan: As above (3) Hypotension: Status: Resolved Assessment and plan: Off of pressors and transferred out of the ICU. Qualifiers: Hypotension type: other hypotension type Qualified Code(s): I95.89 - Other hypotension (4) Hyperglycemia without ketosis: Status: Acute Assessment and plan: FBG was actually 80 this am. Not requiring coverage. (5) Hypocalcemia: Status: Resolved Assessment and plan: Calcium has normalized. Check mag in am. (6) PTSD (post-traumatic stress disorder): Status: Chronic Assessment and plan: I am not sure if the patient is receiving care for this as outpatient. Will touch base with care management. (7) DVT prophylaxis: Status: Acute Assessment and plan: SC enoxaparin (8) Discharge planning issues: Status: Acute Assessment and plan: Full code Transferred out of the ICU. C/s PT. Subjective Subjective Interval history since last seen: Mr Mendez states his shortness of breath is at its baseline. Denies dizziness, CP, n/v. Declined breakfast this morning - evidently, this is his baseline. Refused BiPAp overnight. On humidified heated high flow this am, now on 3L of O2 by NC, saturating 93%. Exam Narrative Exam Narrative: General: Pleasant middle-aged male who is A&Ox3, sitting up comfortably in a chair, on humidified heated high flow NC, no evidence of dyspnea/tachypnea/cyanosis HEENT: EOMI, MMM Heart: RRR, no m/r/g Lungs: Diminished breath sounds B Abdomen: soft, nontender, nondistended Extremities:no edema BLEs Objective Last Vital Signs Temp 36.1 C L 07/16/23 15:20 Pulse 94 H 07/16/23 15:20 Resp 20 07/16/23 15:20 BP 148/88 H 07/16/23 15:20 Pulse Ox 93 07/16/23 15:20 Laboratory Results - last 24 hr 07/15/23 07/16/23 20:44 06:32 WBC 11.18 H RBC 4.30 L Hgb 12.7 L Hct 38.6 L MCV 90 MCH 29.5 MCHC 32.9 RDW 13.0 Plt Count 167 MPV 10.6 VBG pH 7.39 VBG pCO2 62 H* VBG pO2 25 VBG HCO3 37 H VBG Total CO2 34 H VBG O2 Saturation 41 VBG Base Excess 12 H Sodium 140 Potassium 4.1 Chloride 101 Carbon Dioxide 36.1 H Anion Gap 2.9 L BUN 19 H Creatinine 0.7 Est GFR (CKD-EPI 2020) 102.89 Glucose 80 Calcium 9.8 Time Spent with Patient Time Spent with Patient: 35-49 minutes Time was spent: preparing to see the patient(eg.review tests), obtaining and/or reviewing separately otained hiistory, ordering medications,tests, procedures, referring, communicating with other health long term care social worker, indepentently interpreting results, counseling the patient and care coordination
[2023-07-17] VITALS (14 sets, daily range): BP systolic 130–177; BP diastolic 82–98; PULSE 79–101; RESP 3–24; TEMP 35–37.1; O2SAT 92–100
[2023-07-17] MEDS: Albuterol/Ipratropium 3 ML UPD VIAL UPD ×4 (05:26→23:25)
[2023-07-17 06:37] LABS: Abs Immature Grans 0.04 10^3/uL (0.0-0.06); Absolute Basophil Count 0.01 10^3/uL (0.0-0.2); Absolute Eosinophil Count 0.04 10^3/uL (0.0-0.7); Absolute Lymphocyte Count 0.85 10^3/uL (1.2-3.4); Absolute Monocyte Count 0.87 10^3/uL (0.1-0.8); Basophils % 0.1; Eosinophils % 0.4; HCT 41.4 % (40.0-50.0); HGB 13.4 g/dL (13.5-17.5); Immature Grans % 0.4; Lymphocytes % 9.5; MCH 29.3 pg (27.0-33.0); MCHC 32.4 % (32.0-36.0); MCV 91 fL (80-95); MPV 10.5 fL (8.0-11.0); Monocytes % 9.8; Neutrophils % 79.8; Platelet Count 181 10^3/uL (130-400); RBC 4.57 10^6/uL (4.36-5.78); RDW 12.9 % (11.8-14.1); RDW-SD 42.6 fL; WBC 8.91 10^3/uL (4.4-10.8)
[2023-07-17 06:53] LABS: Anion Gap 2.5 mmol/L (3-11); BUN 19 mg/dL (7-18); CO2 38.5 mmol/L (21.0-32.0); CREATININE 0.6 mg/dL (0.70-1.30); Calcium 9.3 mg/dL (8.5-10.1); Chloride 99 mmol/L (98-107); Glucose 83 mg/dL (74-106); Magnesium 2.1 mg/dL (1.8-2.4); Potassium 3.8 mmol/L (3.5-5.1); Sodium 140 mmol/L (136-145)
[2023-07-17] MEDS: predniSONE 20 MG TAB 40 MG PO (08:03)
[2023-07-17] MEDS: Normal Saline Flush 10 ML SYR IVP (08:03)
[2023-07-17] MEDS: Enoxaparin 40 MG/0.4 ML SYR SC (08:03)
[2023-07-17] MEDS: cefTRIAXone 1 GM/50 ML BAG IVPB (09:25)
[2023-07-17] MEDS: Budesonide/Formoterol 160/4.5 6 GM 60 PUFF INH IH ×2 (09:47→20:38)
[2023-07-17] MEDS: Tiotropium Bromide-Respimat 10 PUFF INH 2 PUFF IH (09:48)
[2023-07-17] MEDS: AZITHROMYCIN 500 MG in Normal Saline 250 ML 250 MG IVPB (10:11)
--- NOTE | 2023-07-17 17:53 | W.PM.PROGNOT ---
Date of Service Date of service: 07/17/23 Time of Service: 17:53 Assessment and Plan Assessment and plan (1) Acute hypercapnic respiratory failure: Status: Acute Assessment and plan: Acute hypoxic and hypercapnic respiratory failure. Appears to be better than baseline, although we do not know what his actual baseline O2 requirements are. We will find out tomorrow. WEan O2 as tolerated. His pCO2 has actually been improving. Continue scheduled + prn nebs, symbicort, prednisone, azthromycin/ceftriaxone. No obvious PNA on CXR. (2) COPD exacerbation: Status: Acute Assessment and plan: As above (3) Hypotension: Status: Resolved Assessment and plan: Off of pressors and transferred out of the ICU. Qualifiers: Hypotension type: other hypotension type Qualified Code(s): I95.89 - Other hypotension (4) Hyperglycemia without ketosis: Status: Acute Assessment and plan: Not requiring coverage. (5) Hypocalcemia: Status: Resolved Assessment and plan: Calcium has normalized. Recheck in am. (6) PTSD (post-traumatic stress disorder): Status: Chronic Assessment and plan: I am not sure if the patient is receiving care for this as outpatient. Case management is following. (7) DVT prophylaxis: Status: Acute Assessment and plan: SC enoxaparin (8) Discharge planning issues: Status: Acute Assessment and plan: Full code Nearing d/c. PT consulted. Subjective Subjective Interval history since last seen: Mr Mendez states he is feeling better. I found him on 3L of O2 with O2 sats of 100% per last vitals. Endorses a little dizziness. Denies CP, SOB, n/v. Exam Narrative Exam Narrative: General: Pleasant middle-aged male who is A&Ox3, sitting up in a chair, on 3L of O2 by NC, no dyspnea/tachypnea/cyanosis HEENT: EOMI, MMM Heart: RRR, no m/r/g Lungs: Diminished breath sounds B Abdomen: soft, nontender, nondistended Extremities:no edema BLEs Objective Last Vital Signs Temp 35.0 C L 07/17/23 15:33 Pulse 96 H 07/17/23 15:33 Resp 18 07/17/23 15:33 BP 157/88 H 07/17/23 15:33 Pulse Ox 98 07/17/23 17:41 Laboratory Results - last 24 hr 07/17/23 06:02 WBC 8.91 RBC 4.57 Hgb 13.4 L Hct 41.4 MCV 91 MCH 29.3 MCHC 32.4 RDW 12.9 Plt Count 181 MPV 10.5 Immature Gran % 0.4 Neutrophils % 79.8 Lymphocytes % 9.5 Monocytes % 9.8 Eosinophils % 0.4 Basophils % 0.1 Nucleated RBC % 0.0 Absolute Neutrophils 7.10 H Absolute Lymphocytes 0.85 L Absolute Monocytes 0.87 H Absolute Eosinophils 0.04 Absolute Basophils 0.01 Sodium 140 Potassium 3.8 Chloride 99 Carbon Dioxide 38.5 H Anion Gap 2.5 L BUN 19 H Creatinine 0.6 L Est GFR (CKD-EPI 2020) 107.80 Glucose 83 Calcium 9.3 Magnesium 2.1 Time Spent with Patient Time Spent with Patient: 25-34 minutes Time was spent: preparing to see the patient(eg.review tests), obtaining and/or reviewing separately otained hiistory, ordering medications,tests, procedures, referring, communicating with other health personal care assistant, indepentently interpreting results, counseling the patient and care coordination
[2023-07-18] VITALS (17 sets, daily range): BP systolic 134–163; BP diastolic 77–96; PULSE 71–125; RESP 2–28; TEMP 35.1–36.7; O2SAT 86–99
[2023-07-18] MEDS: Albuterol/Ipratropium 3 ML UPD VIAL UPD ×3 (05:47→17:55)
[2023-07-18] MEDS: Tiotropium Bromide-Respimat 10 PUFF INH 2 PUFF IH (08:45)
[2023-07-18] MEDS: Budesonide/Formoterol 160/4.5 6 GM 60 PUFF INH IH ×2 (08:45→19:39)
[2023-07-18] MEDS: cefTRIAXone 1 GM/50 ML BAG IVPB (09:12)
[2023-07-18] MEDS: Enoxaparin 40 MG/0.4 ML SYR SC (09:12)
[2023-07-18] MEDS: predniSONE 20 MG TAB 40 MG PO (09:12)
--- NOTE | 2023-07-18 10:01 | PDOC.CMPRO ---
Date of service: 07/18/23 Time of Service: 10:01 Care Management Progress Note Progress Note Text Progress Note Text: S/O: Jeronimo was sitting up in his chair when CM met with him. He stated that he is feeling better today, and per report, he is back to his baseline O2 needs. CM discussed discharge plans with Jeronimo, including new orders for HH PT, OT, which he is agreeable to. Per MD, he will likely be ready for discharge tomorrow. CM talked to ABDI Moss, who is helping to support him at home, and asked that she bring in one of Jeronimo's O2 tanks tomorrow. CM will coordinate RCT private vehicle home, when ready. CM will continue to follow. A: Jeronimo is a 62 year old male admitted to [facility] on 07/13/23 for acute hypercapnic respiratory failure. P: Jeronimo will return home with new orders for HH PT, OT. CM will coordinate RCT private vehicle home. Juan Luis Arndt will bring in his O2 tank prior to discharge. CM will continue to follow.
[2023-07-18] MEDS: AZITHROMYCIN 500 MG in Normal Saline 250 ML 250 MG IVPB (10:14)
--- NOTE | 2023-07-18 10:45 | IN_ITS ---
PT Notes Visit Reasons: Acute hypercapnic respiratory failure Physical Therapy Inpatient Initial Evaluation Date: 07/18/2023 Referring Doctor: Gracie Franco MD PT Orders: PT CONSULT: Limited ability Precautions: Fall. Standard. Activity as tolerated. Patient Profile/Admitting Diagnosis: Jeronimo is a 63-year-old male who has been on oxygen supplementation at 3 L/min via NC and who presented to the ED on 07/13/2023 due to shortness of breath. patient is admitted for management of acute hypercapnic respiratory failure, COPD exacerbation, hyperglycemia with ketosis, hypocalcemi PTSD with paranoia. Referral for PT was sent to determine and safe discharge recommendations PMHX: All Active Problems Hypocalcemia (Acute) Hyperglycemia without ketosis (Acute) COPD exacerbation (Acute) Acute hypercapnic respiratory failure (Acute) Respiratory failure with hypoxia and hypercapnia (Acute) Hyperlipidemia (Acute) Tubular adenoma of colon (Acute) Depressive disorder (Chronic) Patient with inpatient mental health admission in [facility] system-unclear diagnosis-patient attributes to flare social stressors-no subsequent follow-up since moving to [place]. Symptoms currently quiet as of 10/1999 Degenerative joint disease involving multiple joints (Acute) Weight loss (Acute) PTSD (post-traumatic stress disorder) (Chronic) Personal history of nicotine dependence (Acute) 09/2021-about a 96-ygth-helg history of smoking, patient quit 2016 11/2020-Chest cT screen-unremarkable Essential hypertension (Acute) COPD (chronic obstructive pulmonary disease) (Chronic) O2 dependent Housing instability (Acute) Surgical History H/O lumpectomy (~08/08/07) large sebaceous cyst removed from right index finger History of open reduction and internal fixation (ORIF) procedure (~08/24/13) intertrochanteric Fx right hip Social History/Home Situation: Lives alone in an apartment building with an elevator to go up his apartment. Does not use an assistive device although admits to holding onto furniture and rainey for his baseline mobility. Equipment Owned/DME: Oxygen supplementation 3 L/min via NC Subjective: Anxious about not being able to go home as he states that the building director of online education will no longer accept him back. has had 2 falls in the past year, Objective: General Observation: SOB at rest. On 6 L of oxygen per minute via NC when PT came in. RT John Paul present to do a gait oximetry with patient and PT. IV access through L UE. Mental Status: Alert and oriented as to person, place, time, and purpose. Able to pay attention, focus, and respond appropriately. Pain: Denies Vital Signs: WAs saturating okay at rest so RT decreased oxygen to 2 L just before the walk. Oxygen saturation went down to 86% with the walk and rate needed to be increased back up to 6 L for the rest of the walk. ROM: Right Upper Extremity: Shoulder Flexion WFL. Shoulder abduction WFL. Elbow flexion WFL. Wrist flexion WFL. Functional opening and closing of hand WFL. Left Upper Extremity: Shoulder Flexion WFL. Shoulder abduction WFL. Elbow flexion WFL. Wrist flexion WFL. Functional opening and closing of hand WFL. Right Lower Extremity: Hip flexion WFL. Hip abduction WFL. Knee flexion WFL. Ankle dorsiflexion WFL. Ankle plantarflexion WFL. Left Lower Extremity: Hip flexion WFL. Hip abduction WFL. Knee flexion WFL. Ankle dorsiflexion WFL. Ankle plantarflexion WFL. Strength: Right Upper Extremity: Shoulder flexors 4-/5. Shoulder abductors 4-/5. Elbow flexors 4-/5. Elbow extensors 4-/5. Arm Rest Builder strong. Left Upper Extremity: Shoulder flexors 4-/5. Shoulder abductors 4-/5. Elbow flexors 4-/5. Elbow extensors 4-/5. Arm Rest Builder strong. Right Lower Extremity: Hip flexors 3+/5. Hip abductors 3+/5. Knee flexors 4-/5. Knee extensors 3+/5. Ankle dorsiflexors 3+/5. Ankle plantarflexors 3+/5. Left Lower Extremity: Hip flexors 3+/5. Hip abductors 3+/5. Knee flexors 4-/5. Knee extensors 3+/5. Ankle dorsiflexors 3+/5. Ankle plantarflexors 3+/5. Bed Mobility/Transfers: Moderate cueing provided for use of B UE during movement transitions for safety, for walker management, and for activity pacing to do the following: Sit to stand with stand by assist. Stand to sit with stand by assist. Bed to reclining chair with stand by assist. Reclining chair to bed with stand by assist. Gait: Facilitated safe and correct performance of level surface ambulation covering a distance of 150 feet with 3 standing rests due to worsening shortness of breath with oxygen saturation going down to 86% on 2 L/min necessitating increase of graded to 6 L/min with oxygen saturation normalizing to 92% until the end of the walk but with patient manifesting with moderate shortness of breath. Patient appeared shaky due to significantly decreased activity tolerance. No LOB. Balance: Static Sitting: Normal Dynamic Sitting: Normal Static Standing: Fair Dynamic Standing: Fair Special Tests: Mobility Limitations Standardized Measure [facility] AM-PAC 6 clicks Basic Mobility Inpatient Short Form: Raw Score: 22 CMS Score: 21% deficit Informed Consent/Education: Patient was instructed in purpose of PT consult and plan of care. Agreeable to proceed with established PT POC to achieve personal goals. Assessment: Patient presents with clinical signs and symptoms consistent with current/admitting diagnoses that have resulted to mobility limitations, gait instability, generalized weakness, and overall ADL decline as demonstrated by the following impairment level findings: 1. Decreased strength to B UE/LE major muscle groups 2. Impaired sitting/standing balance 3. Impaired activity tolerance 4. Shortness of breath Impairments are contributing to the following functional limitations: 1. Difficulty with ambulation without assistive device 2. Increased completion time for mobility ADL performance 3. Increased risk for falls 4. Difficulty with managing steps alone safely Patient is assessed as a 19254 moderate complexity based on the following: History: 62-year-old male with past medical history as indicated above Examination: Demonstrable impairment in strength, balance, and mobility level with underlying impairments and functional limitations as exhibited above as well as deficit score of 21% utilizing the [facility] Mobility Inpatient Short Form Presentation: Evolving Decision Makin moderate complexity Goals: Goals X1 week 1. Supine-Sit independent 2. Sit-Supine independent 3. Sit-Stand independent 4. Stand-Sit independent with no AD 5. Bed-Chair independent with no AD 6. Chair-Bed independent with no AD 7. Independent gait on level surface with use of 4WW for at least 150 feet without report of pain nor dyspnea 8. Good static and dynamic standing balance/tolerance Plan of Care/Treatment Plan: 1-2x/day, 7 days/week x 1 week. Plan of care has been reviewed with the [employer] providing the service under Physical Therapy direction. Initiate Physical Therapy intervention for energy conservation technique, fall reduction, pain management as needed, strengthening, bed mobility, transfers, gait, stairs, balance training, and use of assistive device. DISCHARGE RECOMMENDATIONS: [] Home with no services [] [X] Home with services. Patient will benefit from home health PT services in order to progress mobility level using least restrictive assistive ambulatory device, assess home safety, identify additional equipment needs, and establish a functional maintenance program that will increase ability of patient to remain at home. [] Home with outpatient PT [] [] SNF for continued rehabilitation [] [] Detention Care [] [] SNF versus LTC based on ability to participate and progress [] TREATMENT CODE/TIME: 07142 x 25 minutes for 1 unit beginning at 10:15 AM. Thank you for the opportunity to participate in the care of this patient. Shana Fischer PT, DPT, CLT [facility] [place], [place]
--- NOTE | 2023-07-18 12:32 | RESPIRATORY ---
Nancy at [facility] confirmed the patient's home O2 order is for 3L at rest and with ambulation
--- NOTE | 2023-07-18 15:25 | PT.INTREAT ---
Date of service: 07/18/23 Time of Service: 14:59 PT Notes Visit Reasons: Acute hypercapnic respiratory failure Inpatient Physical Therapy Treatment Note [facility] Date: 07/18/23 PRECAUTIONS: Fall, standard, activity as tolerated SUBJECTIVE: Patient reports feeling pretty good. OBJECTIVE: Sitting up in chair, agreeable to therapy. ? PAIN: Yes, about a 5/10, location unspecified. VITALS: ? Pre-Treatment: BP 163/84, HR 107 BPM, SaO2 94% on 2L/min O2. ? Post-Treatment: HR 105 BPM, SaO2 92% on 2L/min ? ? ? BED MOBILITY/TRANSFERS? Rolling L/R: not assessed Supine-sit: not assessed ? Sit-supine: not assessed ? Sit-stand: independent ? Stand-sit: independent? Bed-Chair: SBA ? Chair-bed: SBA ? Therapeutic Exercises ([id number]): Direct one-on-one instruction in therapeutic exercises to develop strength, endurance, range of motion and flexibility. Ambulation ? Assistive Device: FWW? Weight bearing: full Assist: SBA, wheelchair follow ? Distance:? 300 feet, 1 seated rest at approx 75 feet. ? Deviation: kyphotic, forward leaning posture, reduced knee flexion at toe off R>L, reduced step height, reduced stride length. SaO2 drops to 84% on 2L, increased to 3L. Patient reports feeling lightheaded. Recovers in <2 minutes to 92%, maintains 91-92% for the remainder of the distance on 3L/min. Verbal cues for nasal breathing, pursed lip breathing. Patient educated on value of pursed lip breathing. Also educated on energy conservation techniques for shower, as patient brings up that although he does feel short of breath, it isn't nearly as bad as he gets when washing his hair. Patient reports that sitting to shower makes this worse. ? Provided skilled instruction in proper exercise performance Provided skilled manual cues to facilitate proper muscle recruitment and/or form. ASSESSMENT:? Patient appears able to maintain Sa02 on 2L/min at rest, requires 3L/m to maintain sats with activity. PLAN: continue global strengthening per plan of care until patient is medically ready for discharge. TREATMENT CODE/TIME: 25 minutes beginning at 14:59
--- NOTE | 2023-07-18 16:14 | PGE_ITS ---
Date of Service Date of service: 07/18/23 Time of Service: 16:14 Assessment and Plan Assessment and plan (1) Acute hypercapnic respiratory failure: Status: Resolved Assessment and plan: Acute hypoxic and hypercapnic respiratory failure. At baseline per exercise oximetry this afternoon. He needs 2L of O2 at rest and 3L with activity. Discourage excessive O2 use. Continue scheduled + prn nebs, symbicort, prednisone, azthromycin/ceftriaxone. No obvious PNA on CXR. (2) COPD exacerbation: Status: Acute Assessment and plan: As above (3) Urinary retention: Status: Acute Assessment and plan: STart flomax and continue bladder scans. Consider urology consult. (4) Hypotension: Status: Resolved Assessment and plan: Off of pressors and transferred out of the ICU. Qualifiers: Hypotension type: other hypotension type Qualified Code(s): I95.89 - Other hypotension (5) Hyperglycemia without ketosis: Status: Acute Assessment and plan: Not requiring coverage. (6) Hypocalcemia: Status: Resolved Assessment and plan: Calcium has normalized. (7) PTSD (post-traumatic stress disorder): Status: Chronic Assessment and plan: I am not sure if the patient is receiving care for this as outpatient. Case management is following. (8) DVT prophylaxis: Status: Acute Assessment and plan: SC enoxaparin (9) Discharge planning issues: Status: Acute Assessment and plan: Full code Anticipate discharge home tomorrow. If he does need a cuenca catheter, this disposition may change. PT recommends Home health PT. Subjective Subjective Interval history since last seen: Mr Mendez states he is feeling a little dizzy and like his bladder is full. He was retaining 850 cc of urine this am for which he was straight cath'ed. Denies CP, SOB, n/v. Passed exercise oximetry on 3L this afternoon which is his baseline. Exam Narrative Exam Narrative: General: Pleasant middle-aged male who is A&Ox3, sitting up in a chair, on 2L of O2 by NC, no dyspnea/tachypnea/cyanosis HEENT: EOMI, MMM Heart: RRR, no m/r/g Lungs: Diminished breath sounds B Abdomen: soft, nontender, nondistended Extremities:no edema BLEs Objective Last Vital Signs Temp 36.1 C L 07/18/23 15:05 Pulse 114 H 07/18/23 15:05 Resp 18 11/20/23 15:05 BP 163/84 H 07/18/23 15:05 Pulse Ox 97 07/18/23 15:05 Time Spent with Patient Time Spent with Patient: 25-34 minutes Time was spent: preparing to see the patient(eg.review tests), obtaining and/or reviewing separately otained hiistory, ordering medications,tests, procedures, referring, communicating with other health hearing care practitioner, indepentently interpreting results, counseling the patient and care coordination
[2023-07-18] MEDS: Tamsulosin 0.4 MG CAPCR PO (18:37)
[2023-07-19] VITALS (15 sets, daily range): BP systolic 131–169; BP diastolic 78–92; PULSE 82–114; RESP 2–24; TEMP 36.1–37.2; O2SAT 93–100
[2023-07-19] MEDS: Albuterol/Ipratropium 3 ML UPD VIAL UPD ×4 (05:00→23:44)
[2023-07-19] MEDS: Tiotropium Bromide-Respimat 10 PUFF INH 2 PUFF IH (07:46)
[2023-07-19] MEDS: Budesonide/Formoterol 160/4.5 6 GM 60 PUFF INH IH ×2 (07:46→20:29)
[2023-07-19 08:48] LABS: Anion Gap 0.4 mmol/L (3-11); BUN 19 mg/dL (7-18); CO2 37.6 mmol/L (21.0-32.0); CREATININE 0.7 mg/dL (0.70-1.30); Calcium 9.3 mg/dL (8.5-10.1); Chloride 101 mmol/L (98-107); Estimated GFR 102.89 (mL/min/1.73m2); Glucose 96 mg/dL (74-106); Potassium 3.3 mmol/L (3.5-5.1); Sodium 139 mmol/L (136-145)
[2023-07-19] MEDS: Normal Saline 500 ML 100 ML IV (08:52)
[2023-07-19] MEDS: Enoxaparin 40 MG/0.4 ML SYR SC (08:53)
[2023-07-19] MEDS: Normal Saline Flush 10 ML SYR IVP ×2 (08:53→11:26)
[2023-07-19] MEDS: predniSONE 20 MG TAB 40 MG PO (08:53)
[2023-07-19] MEDS: cefTRIAXone 1 GM/50 ML BAG IVPB (08:53)
[2023-07-19] MEDS: AZITHROMYCIN 500 MG in Normal Saline 250 ML 250 MG IVPB (09:31)
--- NOTE | 2023-07-19 10:11 | CMPROGNOTE_ITS ---
Date of service: 07/19/23 Time of Service: 10:11 Care Management Progress Note Progress Note Text Progress Note Text: S/O: Jeronimo was sitting up on the edge of his bed when CM met with him. Per MD, he is retaining urine, and will likely require a cuenca catheter. Urology was consulted. CM discussed disposition with Jeronimo, as he may have a catheter upon discharge; he stated that he feels that he will have difficulty managing at home with O2 and a catheter. CM reviewed the support he will have at home, including HH services, and support from [facility], which will help with grocery shopping and light housekeeping, occasionally. He stated that he is feeling overwhelmed with the care he currently needs. CM discussed SNF for short term rehab, which he is agreeable to. CM sent referrals to [facility] and [facility], at his request. CM will continue to follow. A: Jeronimo is a 62 year old male admitted to [facility] on 07/13/23 for acute hypercapnic respiratory failure. P: Jeronimo will return home with new orders for HH PT, OT vs SNF for short term rehab. CM will coordinate RCT private vehicle home. Juan Luis Arndt will bring in his O2 tank prior to discharge. CM will continue to follow.
[2023-07-19] MEDS: Lidocaine 2% Jelly 11 ML SYR UR (10:12)
--- NOTE | 2023-07-19 11:45 | PT.INTREAT ---
PT Notes Visit Reasons: Acute hypercapnic respiratory failure Date: 07/19/23 PRECAUTIONS: Fall, standard, activity as tolerated SUBJECTIVE: pt having difficulty breathing, OBJECTIVE: ?Pt sitting at the EOB hunched forward, on 2L of 02 support NC, agreed to participating with therapy ? PAIN: Yes, generalized unable to grade VITALS: monitored by nursing, SAo2 at 92% on 2L of 02 support NC seated position, 92% on 2L of 02 support post session has been resting for 3mins. ? BED MOBILITY/TRANSFERS? Rolling L/R: independent Supine-sit: independent? Sit-supine: independent? Sit-stand: independent ? Stand-sit: independent? Bed-Chair: SBA? Chair-bed: SBA ? Therapeutic Exercises ([id number]): Direct one-on-one instruction in therapeutic exercises to develop strength, endurance, range of motion and flexibility. Ambulation ? Assistive Device: FWW? Weight bearing: full Assist: SBA, wheelchair follow ? Distance:? 150x2 with seated rest break in between distance. ? Deviation: kyphotic, stoop forward posture, low step height and step length, pt reports lips tingling at 2L while gait training, increased O2 support to 3L with pt tolerating activity better, ?pt returned to 2L O2 support after pt got back to his room, pt stayed at EOB post session. ? Provided skilled instruction in proper exercise performance Provided skilled manual cues to facilitate proper muscle recruitment and/or form. ASSESSMENT:? Patient appears able to maintain Sa02 on 2L/min at rest, requires 3L/m to maintain sats with activity. PLAN: continue global strengthening per plan of care until patient is medically ready for discharge. TREATMENT CODE/TIME: 09952 25 mins (11:25-11:50am)
[2023-07-19] MEDS: Potassium Chloride 20 MEQ TABCR 40 MEQ PO (12:07)
--- NOTE | 2023-07-19 12:15 | UCONE_ITS ---
Date of service: 07/19/23 Time of Service: 12:15 Assessment and Plan Assessment and plan (1) Urinary retention: Status: Acute Assessment and plan: He was just started on tamsulosin on yesterday. We generally wait about 5 days after starting the tamsulosin before giving a voiding trial. If he is ready for discharge otherwise, the voiding trial can be arranged in our office. If he is still hospitalized, we can do the voiding trial while he is here. In the meantime, we should optimize his bowel function and mobility. History of Present Illness History of Present Illness Chief Complaint: Urinary retention Narrative: This is a 62-year-old gentleman who is currently hospitalized with respiratory symptoms. I have been asked to see him because of issues with urinary retention. The patient admits to some slowing of his urinary stream over the past few months. He had not gone into complete retention. He had no dysuria or gross hematuria. When he was hospitalized initially, he was in the intensive care unit. A Castillo catheter was maintained for RITA. Since the catheter has been removed, he has had high residual urine volumes. He required catheterization yesterday and he was started on tamsulosin. This morning, when he was unable to empty his bladder well, a Castillo catheter was ordered. The nursing staff was unable to place the catheter successfully, so they asked my staff and I to place the catheter. He has not had any prior urologic surgery. He has no history of kidney stones or urinary tract infections. Review of Systems Narrative: No fevers or chills No vision change or dysphasia No diabetes or thyroid dysfunction Recent pneumonia/repiratory failure No chest pain or palpitations No nausea, vomiting, hepatitis, ulcers or jaundice No seizures, strokes or peripheral neuropathy No bleeding disorders or anemia No gout PFSH All Active Problems Urinary retention (Acute) Discharge planning issues (Acute) DVT prophylaxis (Acute) Pneumonia (Acute) Hyperglycemia (Acute) Acute on chronic respiratory failure with hypoxia and hypercapnia (Acute) Hyperglycemia without ketosis (Acute) COPD exacerbation (Acute) Respiratory failure with hypoxia and hypercapnia (Acute) Hyperlipidemia (Acute) Tubular adenoma of colon (Acute) Depressive disorder (Chronic) Patient with inpatient mental health admission in [facility] system-unclear diagnosis-patient attributes to flare social stressors-no subsequent follow-up since moving to [place]. Symptoms currently quiet as of 10/1999 Degenerative joint disease involving multiple joints (Acute) Weight loss (Acute) PTSD (post-traumatic stress disorder) (Chronic) Personal history of nicotine dependence (Acute) 09/2021-about a [id number]-[id number] history of smoking, patient quit 11/2020-Chest cT screen-unremarkable Essential hypertension (Acute) COPD (chronic obstructive pulmonary disease) (Chronic) O2 dependent Housing instability (Acute) Surgical History H/O lumpectomy (~08/08/07) large sebaceous cyst removed from right index finger History of open reduction and internal fixation (ORIF) procedure (~08/24/13) intertrochanteric Fx right hip Family History Mother Heart disease COPD (chronic obstructive pulmonary disease) Father Alcohol use disorder Heart disease Brother Substance use disorder Social History Smoking/Tobacco Use Status: Former Tobacco Use tobacco type: cigarettes Quit Date: 08/29/14 Tobacco: How many years used: 41 Second Hand Exposure: Yes Smoking risk assessment performed?: Yes Alcohol Intake: former Details: Pt formerly chewed tobacco Drug use: Never Substance use type: does not use Caregiver/Support person: No Household members: none Housing: other Do you need help understanding health information?: Rarely Pets and animals: No Sexually active: No Do you think of yourself as: straight/heterosexual Current gender identity: male What is your relationship status?: How often do you talk on the phone with friends or family?: never How often do you get together with friends or relatives?: never How often do you attend anabaptist or restorationist services?: decline to answer Do you belong to any clubs or organized social groups?: decline to answer Panel score (0-1 are the most socially isolated patients): 0 Duration: < 15 minutes/day Frequency: 1-2 times per week Liss/Synagogue: No preference Special liss needs: No Additional Social history: Currently Homeless, ran out of O2 Exam Narrative Exam Narrative: He is a very thin gentleman. He does not appear septic or toxic His vital signs are documented elsewhere His abdomen is soft with no guarding or rebound tenderness. There is ecchymosis in the left inguinal region. He is circumcised. The testes are soft with no masses. No inguinal hernias are palpable. There is no edema in the lower extremities. No amputations or deformities are found. He is awake and alert. Results Last Vital Signs Temp 36.1 C L 07/19/23 11:11 Pulse 95 H 07/19/23 11:11 Resp 19 07/19/23 11:11 BP 138/84 07/19/23 11:11 Pulse Ox 97 07/19/23 11:11 Labs 07/17/23 06:02 07/19/23 08:23 Labs: Laboratory Results - last 24 hr 07/19/23 08:23 Sodium 139 Potassium 3.3 L Chloride 101 Carbon Dioxide 37.6 H Anion Gap 0.4 L BUN 19 H Creatinine 0.7 Est GFR (CKD-EPI 2020) 102.89 Glucose 96 Calcium 9.3 Insert Bladder Catheter Text: He was seen at the bedside. He was placed in the supine position. His genitalia was prepped with Betadine. 2% Xylocaine jelly was instilled into the urethra to act as a local anesthetic. An 18 [place] coud? tipped catheter was then passed through the urethra into the bladder. The catheter balloon was inflated with 10 cc of sterile water. Clear urine was obtained. The catheter was hooked to gravity drainage.
--- NOTE | 2023-07-19 14:50 | PTTR_ITS ---
Date of service: 07/19/23 Time of Service: 13:58 PT Notes Visit Reasons: Acute hypercapnic respiratory failure Inpatient Physical Therapy Treatment Note [facility] Date: 07/19/23 PRECAUTIONS: Fall, standard, activity as tolerated. SUBJECTIVE: Patient reports feeling tired, weak. OBJECTIVE: Sitting EOB, agreeable to therapy.? PAIN: none reported VITALS: ? Pre-Treatment: SaO2 92% on 2L/min O2 ? Post-Treatment: SaO2 93% on 2L/min O2? Therapeutic Activities (50694w4): Direct one-on-one instruction in dynamic activities to improve functional performance. ? BED MOBILITY/TRANSFERS? Rolling L/R: Independent Supine-sit: Independent ? Sit-supine: Independent ? Sit-stand x5, verbal cues to listen to patient's own body: SBA ? Stand-sit x5, verbal cues to listen to patient's own body: SBA ? Bed-Chair: SBA? Chair-bed: SBA Provided skilled cues and instruction on performance and technique throughout. ? Therapeutic Exercises (98681p3): Direct one-on-one instruction in therapeutic exercises to develop strength, endurance, range of motion and flexibility. ? Exercises * Instructed on diaphragmatic breathing * instructed on pursed lip breathing * instructed on importance of rest, energy conservation techniques Ambulation ? Assistive Device: fww, 2L/min O2 to start ? Weight bearing: full Assist: wheelchair follow ? Distance:? 300 feet? Deviation: stooped forward, kyphotic posture. Reduced step height, reduced step length. SaO2 drops to 77% at which point patient reports I need more air, feeling dizzy. Increase O2 to 3L, patient recovers after 2 minutes, continues walk on 3L and maintains SaO2 >88%.? Provided skilled instruction in proper exercise performance Provided skilled manual cues to facilitate proper muscle recruitment and/or form. ASSESSMENT:? Patient tolerates therapy well, no report of pain. PLAN: Continue treatment per plan of care until patient is cleared for discharge. TREATMENT CODE/TIME: 28 minutes beginning at 14:21
[2023-07-19] MEDS: Tamsulosin 0.4 MG CAPCR PO (17:31)
--- NOTE | 2023-07-19 19:15 | W.PM.PROGNOT ---
Date of Service Date of service: 07/19/23 Time of Service: 16:30 Assessment and Plan Assessment and plan (1) Acute hypercapnic respiratory failure: Status: Resolved Assessment and plan: Acute hypoxic and hypercapnic respiratory failure. Today, he is on 2L of O2 at rest but needed 4L with activity. This is near his baseline. Discourage excessive O2 use. Continue scheduled + prn nebs, symbicort, prednisone, azthromycin/ceftriaxone. No obvious PNA on CXR. (2) COPD exacerbation: Status: Acute Assessment and plan: As above (3) Urinary retention: Status: Acute Assessment and plan: Continue flomax. s/p Cuenca. Seen by urology. We are providing cuenca teaching but the patient is overwhelmed by having the catheter and we fear he will not be able to take care of it. (4) Hypotension: Status: Resolved Assessment and plan: Off of pressors and transferred out of the ICU. Qualifiers: Hypotension type: other hypotension type Qualified Code(s): I95.89 - Other hypotension (5) Hyperglycemia without ketosis: Status: Acute Assessment and plan: Not requiring coverage. (6) Hypocalcemia: Status: Resolved Assessment and plan: Calcium has normalized. (7) PTSD (post-traumatic stress disorder): Status: Chronic Assessment and plan: I am not sure if the patient is receiving care for this as outpatient. Case management is following. (8) DVT prophylaxis: Status: Acute Assessment and plan: SC enoxaparin (9) Discharge planning issues: Status: Acute Assessment and plan: Full code Anticipate discharge to a SNF vs swing Subjective Subjective Interval history since last seen: Mr Mendez was retaining urine and required placement of a cuenca catheter. He states that he is feeling well. Denies dizziness, CP, SOB, n/v. He agrees to go to rehab. Exam Narrative Exam Narrative: General: Pleasant middle-aged male who is A&Ox3, sitting up at the edge of the bed, on 2L of O2 by NC, no dyspnea/tachypnea/cyanosis HEENT: EOMI, MMM Heart: RRR, no m/r/g Lungs: Diminished breath sounds B Abdomen: soft, nontender, nondistended : has a cuenca catheter Extremities:no edema BLEs Objective Last Vital Signs Temp 36.6 C 07/19/23 15:34 Pulse 101 H 07/19/23 17:44 Resp 18 07/19/23 17:44 BP 169/92 H 07/19/23 15:34 Pulse Ox 97 07/19/23 17:44 Laboratory Results - last 24 hr 07/19/23 08:23 Sodium 139 Potassium 3.3 L Chloride 101 Carbon Dioxide 37.6 H Anion Gap 0.4 L BUN 19 H Creatinine 0.7 Est GFR (CKD-EPI 2020) 102.89 Glucose 96 Calcium 9.3 Time Spent with Patient Time Spent with Patient: 25-34 minutes Time was spent: preparing to see the patient(eg.review tests), obtaining and/or reviewing separately otained hiistory, ordering medications,tests, procedures, referring, communicating with other health managed care coordinator, indepentently interpreting results, counseling the patient and care coordination
[2023-07-19] MEDS: Docusate Sodium 100 MG CAP PO (19:48)
[2023-07-20] VITALS (16 sets, daily range): BP systolic 125–170; BP diastolic 77–99; PULSE 72–103; RESP 2–24; TEMP 35.3–37.3; O2SAT 89–100
[2023-07-20 06:53] LABS: Abs Immature Grans 0.05 10^3/uL (0.0-0.06); Absolute Basophil Count 0.02 10^3/uL (0.0-0.2); Absolute Eosinophil Count 0.21 10^3/uL (0.0-0.7); Absolute Lymphocyte Count 0.55 10^3/uL (1.2-3.4); Absolute Monocyte Count 0.84 10^3/uL (0.1-0.8); Absolute Neutrophil Count 5.74 10^3/uL (1.2-6.7); Basophils % 0.3; Eosinophils % 2.8; HCT 38.2 % (40.0-50.0); HGB 12.5 g/dL (13.5-17.5); Immature Grans % 0.7; Lymphocytes % 7.4; MCH 29.5 pg (27.0-33.0); MCHC 32.7 % (32.0-36.0); MCV 90 fL (80-95); MPV 10.1 fL (8.0-11.0); Monocytes % 11.3; Neutrophils % 77.5; Platelet Count 171 10^3/uL (130-400); RBC 4.24 10^6/uL (4.36-5.78); RDW 12.8 % (11.8-14.1); RDW-SD 42.1 fL; WBC 7.41 10^3/uL (4.4-10.8)
[2023-07-20] MEDS: Budesonide/Formoterol 160/4.5 6 GM 60 PUFF INH IH ×2 (07:37→19:45)
[2023-07-20] MEDS: Tiotropium Bromide-Respimat 10 PUFF INH 2 PUFF IH (07:38)
[2023-07-20 08:21] LABS: Lab Add On Test DONE
[2023-07-20 08:37] LABS: Magnesium 2.1 mg/dL (1.8-2.4)
[2023-07-20] MEDS: Enoxaparin 40 MG/0.4 ML SYR SC (08:55)
[2023-07-20] MEDS: Normal Saline Flush 10 ML SYR IVP (08:55)
[2023-07-20] MEDS: predniSONE 10 MG TAB 30 MG PO (08:56)
[2023-07-20] MEDS: predniSONE 20 MG TAB 40 MG PO (08:56)
[2023-07-20] MEDS: Potassium Chloride 20 MEQ TABCR 40 MEQ PO (08:56)
[2023-07-20] MEDS: Docusate Sodium 100 MG CAP PO (08:56)
--- NOTE | 2023-07-20 09:53 | PT.INTREAT ---
PT Notes Visit Reasons: Acute hypercapnic respiratory failure Date: 07/20/23 PRECAUTIONS: Fall, standard, activity as tolerated SUBJECTIVE: Pt did not offer report of pain, pt having difficulty breathing OBJECTIVE: ?Pt sitting at the EOB hunched forward, on 2L of 02 support NC, agreed to participating with therapy ? PAIN: non reported VITALS: monitored by nursing, SA02 at 92% on 2L of 02 support NC seated position, 92% on 2L of 02 support post session has been resting for 3mins. ? BED MOBILITY/TRANSFERS? Rolling L/R: independent Supine-sit: independent? Sit-supine: independent? Sit-stand: independent ? Stand-sit: independent? Bed-Chair: SBA? Chair-bed: SBA Bed to toilet: SBA Toilet to bed: SBA ? Therapeutic Exercises 13896: Direct one-on-one instruction in therapeutic exercises to develop strength, endurance, range of motion and flexibility. Ambulation ? Assistive Device: FWW? Weight bearing: full Assist: SBA, wheelchair follow ? Distance:? 300'x2 with seated rest break in between distances. ? Deviation: kyphotic, stoop forward posture, low step height and step length, pt at 3L 02 support NC, pt stayed sitting at EOB post session ? ? ? Provided skilled instruction in proper exercise performance Provided skilled manual cues to facilitate proper muscle recruitment and/or form. ASSESSMENT:? pt having DELATORRE at 2L, ambulates better at 3L of 02 support. PLAN: continue global strengthening per plan of care until patient is medically ready for discharge. TREATMENT CODE/TIME: [id number] 25mins (9:05-9:30am)
[2023-07-20 11:21] LABS: Lab Add On Test COMPLETED
[2023-07-20 11:28] LABS: Anion Gap 2.9 mmol/L (3-11); BUN 14 mg/dL (7-18); CO2 37.1 mmol/L (21.0-32.0); CREATININE 0.6 mg/dL (0.70-1.30); Chloride 102 mmol/L (98-107); Glucose 81 mg/dL (74-106); Potassium 3.8 mmol/L (3.5-5.1); Sodium 142 mmol/L (136-145)
[2023-07-20] MEDS: Albuterol/Ipratropium 3 ML UPD VIAL UPD ×3 (12:23→23:00)
--- NOTE | 2023-07-20 15:37 | CMPROGNOTE_ITS ---
Date of service: 07/20/23 Time of Service: 15:37 Care Management Progress Note Progress Note Text Progress Note Text: S/O: Jeronimo was sitting on the edge of his bed when CM met with him. He stated that he is doing well today. CM asked if he had received any training for his catheter care; he had not yet at that point. CM spoke to the CC, who will ensure that Jeronimo receives catheter training. CM discussed the option for Jeronimo to return home, if he is able to care for the catheter, and if HH RN will be able to visit him the day after discharge, and he is in agreement with this plan. CM called HH who stated that his nursing services will initiate the day after discharge. CM called ABDI Moss, and provided an update; she has been working on getting his apartment ready for him to return. Juan Luis brought in his O2 tank for his transport home. He will need a ride by private vehicle, [facility], when ready for discharge. CM will continue to follow. A: Jeronimo is a 62 year old male admitted to [facility] on 07/13/23 for acute hypercapnic respiratory failure. P: Jeronimo will return home with new orders for HH PT, OT vs SNF for short term rehab. CM will coordinate [facility] private vehicle home. Juan Luis Arndt will bring in his O2 tank prior to discharge. CM will continue to follow.
--- NOTE | 2023-07-20 15:43 | PT.INTREAT ---
Date of service: 07/20/23 Time of Service: 15:21 PT Notes Visit Reasons: Acute hypercapnic respiratory failure Inpatient Physical Therapy Treatment Note [facility] Date: 07/20/23 PRECAUTIONS: Fall, standard, activity as tolerated SUBJECTIVE: Patient seems subdued this afternoon, more than normal. Answers primarily through action, without words or with very few words. OBJECTIVE: Sitting EOB, elbows on knees, hands clasped together. 2L supplemental O2 via nasal cannula. Castillo catheter in place. ? PAIN: none reported VITALS: ? Pre-Treatment: SaO2 93% on 2L/min O2 ? Post-Treatment: SaO2 94% on 2L/min O2, after 1 minute rest.? ? ? BED MOBILITY/TRANSFERS? Rolling L/R: independent Supine-sit: independent ? Sit-supine: independent ? Sit-stand: SBA ? Stand-sit: SBA ? Bed-Chair: SBA ? Chair-bed: SBA ? Therapeutic Exercises (45271n3): Direct one-on-one instruction in therapeutic exercises to develop strength, endurance, range of motion and flexibility. Ambulation ? Assistive Device: FWW? Weight bearing: full Assist: wheelchair follow? Distance:? 700 feet with seated rest x2? Deviation: stooped forward, kyphotic posture. Reduced step height, reduced step length. ? Provided skilled instruction in proper exercise performance Provided skilled cues to facilitate proper muscle recruitment and/or form: Multiple check ins to encourage patient to rest before he is wiped out. Patient maintains SaO2 <88%, resting at 88% after 100 feet and resting again at 91% after 500 feet. ASSESSMENT:? Patient struggles to rest often, prefers to try to push through. Education provided on energy conservation and the importance of resting often. PLAN: Continue patient education, working on frequent breaks per plan of care until patient is cleared for discharge. TREATMENT CODE/TIME: 18 minutes beginning at 15:21
--- NOTE | 2023-07-20 16:52 | CHAPLAIN ---
This is the first time I've visited Jeronimo since he's been extubated and moved out of the ICU. He was sitting at the edge of his bed, using some respiratory equipment. He was pleasant but seemed reluctant to have a longer conversation. He told me that he's not in contact with family and that he's from all over the place. Juan Luis Arndt from [facility] has been coordinating with Care Managers for Jeronimo to get back home when he is medially cleared.
--- NOTE | 2023-07-20 18:10 | PGE_ITS ---
Date of Service Date of service: 07/20/23 Time of Service: 17:55 Assessment and Plan Assessment and plan (1) Acute hypercapnic respiratory failure: Status: Resolved Assessment and plan: Acute on chronic hypoxic and hypercapnic respiratory failure. Today, he is on 2L of O2 at rest but needed 4L with activity. This is near his baseline. Discourage excessive O2 use. Continue scheduled + prn nebs, symbicort, prednisone (taper). Finished abx (azthromycin/ceftriaxone). No obvious PNA on CXR. (2) COPD exacerbation: Status: Acute Assessment and plan: As above (3) Urinary retention: Status: Acute Assessment and plan: Continue flomax. s/p Cuenca. Seen by urology. We are providing cuenca teaching and feel patient will be comfortable with it by tomorrow. He would need to have a voiding trial as outpatient. (4) Hypotension: Status: Resolved Assessment and plan: Off of pressors and transferred out of the ICU. Qualifiers: Hypotension type: other hypotension type Qualified Code(s): I95.89 - Other hypotension (5) Hyperglycemia without ketosis: Status: Acute Assessment and plan: Not requiring coverage. (6) Hypocalcemia: Status: Resolved Assessment and plan: Calcium has normalized. (7) PTSD (post-traumatic stress disorder): Status: Chronic Assessment and plan: I am not sure if the patient is receiving care for this as outpatient. Case management is following. (8) DVT prophylaxis: Status: Acute Assessment and plan: SC enoxaparin (9) Discharge planning issues: Status: Acute Assessment and plan: Full code Anticipate discharge home tomorrow with home health. Subjective Subjective Interval history since last seen: Mr Mendez states he felt a little dizzy walking. He has some chest tightness (like a pulled muscle). Denies CP, dizziness now, SOB at rest, nausea. When I ask him how he is doing learning how to take care of his catheter, he stated I need more time with it. Exam Narrative Exam Narrative: General: Pleasant middle-aged male who is A&Ox3, sitting up at the edge of the bed, on 2L of O2 by NC, no dyspnea/tachypnea/cyanosis HEENT: EOMI, MMM Heart: RRR, no m/r/g Lungs: Diminished breath sounds B Abdomen: soft, nontender, nondistended : has a cuenca catheter Extremities:no edema BLEs Objective Last Vital Signs Temp 36.5 C 07/20/23 15:20 Pulse 88 07/20/23 18:00 Resp 20 07/20/23 18:00 BP 155/90 H 07/20/23 16:54 Pulse Ox 94 07/20/23 18:00 Laboratory Results - last 24 hr 07/20/23 07/20/23 06:17 11:20 WBC 7.41 RBC 4.24 L Hgb 12.5 L Hct 38.2 L MCV 90 MCH 29.5 MCHC 32.7 RDW 12.8 Plt Count 171 MPV 10.1 Immature Gran % 0.7 Neutrophils % 77.5 Lymphocytes % 7.4 Monocytes % 11.3 Eosinophils % 2.8 Basophils % 0.3 Nucleated RBC % 0.0 Absolute Neutrophils 5.74 Absolute Lymphocytes 0.55 L Absolute Monocytes 0.84 H Absolute Eosinophils 0.21 Absolute Basophils 0.02 Sodium 142 Potassium 3.8 Chloride 102 Carbon Dioxide 37.1 H Anion Gap 2.9 L BUN 14 Creatinine 0.6 L Est GFR (CKD-EPI 2020) 107.80 Glucose 81 Calcium 9.0 Magnesium 2.1 Add-On Test Request DONE COMPLETED Time Spent with Patient Time Spent with Patient: 25-34 minutes Time was spent: preparing to see the patient(eg.review tests), obtaining and/or reviewing separately otained hiistory, ordering medications,tests, procedures, r eferring, communicating with other health residential care officer, indepentently interpreting results, counseling the patient and care coordination
[2023-07-20] MEDS: Tamsulosin 0.4 MG CAPCR PO (18:25)
[2023-07-21] VITALS (7 sets, daily range): BP systolic 137–168; BP diastolic 80–94; PULSE 80–121; RESP 9–91; TEMP 35.8–37.1; O2SAT 90–100
[2023-07-21] MEDS: predniSONE 10 MG TAB 30 MG PO (07:50)
[2023-07-21] MEDS: Enoxaparin 40 MG/0.4 ML SYR SC (07:51)
[2023-07-21 07:58] LABS: Abs Immature Grans 0.05 10^3/uL (0.0-0.06); Absolute Basophil Count 0.03 10^3/uL (0.0-0.2); Absolute Eosinophil Count 0.22 10^3/uL (0.0-0.7); Absolute Lymphocyte Count 0.72 10^3/uL (1.2-3.4); Absolute Monocyte Count 0.84 10^3/uL (0.1-0.8); Absolute Neutrophil Count 5.17 10^3/uL (1.2-6.7); Basophils % 0.4; Eosinophils % 3.1; HCT 41.2 % (40.0-50.0); HGB 13.2 g/dL (13.5-17.5); Immature Grans % 0.7; Lymphocytes % 10.2; MCH 29.1 pg (27.0-33.0); MCV 91 fL (80-95); Monocytes % 11.9; Neutrophils % 73.7; Platelet Count 172 10^3/uL (130-400); RBC 4.54 10^6/uL (4.36-5.78); RDW 12.7 % (11.8-14.1); RDW-SD 42.1 fL; WBC 7.03 10^3/uL (4.4-10.8)
[2023-07-21] MEDS: Budesonide/Formoterol 160/4.5 6 GM 60 PUFF INH IH ×2 (07:58→20:41)
[2023-07-21] MEDS: Tiotropium Bromide-Respimat 10 PUFF INH 2 PUFF IH (07:58)
[2023-07-21 08:00] LABS: Anion Gap 0.9 mmol/L (3-11); BUN 19 mg/dL (7-18); CO2 38.1 mmol/L (21.0-32.0); CREATININE 0.7 mg/dL (0.70-1.30); Calcium 9.2 mg/dL (8.5-10.1); Chloride 101 mmol/L (98-107); Estimated GFR 102.89 (mL/min/1.73m2); Glucose 89 mg/dL (74-106); Magnesium 2.1 mg/dL (1.8-2.4); Potassium 3.8 mmol/L (3.5-5.1); Sodium 140 mmol/L (136-145)
[2023-07-21] MEDS: Albuterol 2.5 MG/3 ML INH SOLN VIAL UPD (08:29)
[2023-07-21] MEDS: Albuterol/Ipratropium 3 ML UPD VIAL UPD ×2 (12:08→18:20)
--- NOTE | 2023-07-21 15:41 | W.PM.PROGNOT ---
Date of Service Date of service: 07/21/23 Time of Service: 15:41 Assessment and Plan Assessment and plan (1) Acute hypercapnic respiratory failure: Status: Resolved Assessment and plan: Acute on chronic hypoxic and hypercapnic respiratory failure. Today, he is on 2L of O2 at rest but needed 3L with activity. This is near his baseline. Discourage excessive O2 use. Continue scheduled + prn nebs, symbicort, prednisone (taper). Finished abx (azthromycin/ceftriaxone). No obvious PNA on CXR. (2) COPD exacerbation: Status: Acute Assessment and plan: As above. patient needs to keep follow up appts w/ Dr. Davalos (3) Urinary retention: Status: Acute Assessment and plan: Continue flomax. s/p Cuenca. Seen by urology. We are providing cuenca teaching, however he was resistant to teaching of use of cuenca this morning. I explained to him that he will need to be discharged with the cuenca since he failed a voiding trial inpatient after his ICU admission. He would need to have a voiding trial as outpatient, this can be done in 's office. (4) PTSD (post-traumatic stress disorder): Status: Chronic Assessment and plan: I am not sure if the patient is receiving care for this as outpatient. Case management is following. (5) DVT prophylaxis: Status: Acute Assessment and plan: SC enoxaparin (6) Discharge planning issues: Status: Acute Assessment and plan: Full code Anticipate discharge home tomorrow (Sunday 07/22) with home health. Subjective Subjective Interval history since last seen: Jeronimo states that he is still too short of breath to return home. However, he appears to be at his baseline oxygen requirements of 2 lpm at rest and 3 lpm w/ activity. His cough is minimally productive of whitish mucous. Exam Narrative Exam Narrative: Cachectic appearing white male sitting up at the bedside leaning on his table. He does not appear to be in any acute respiratory distress, able to talk in complete sentences w/out dyspnea Lungs: diffusely diminished, some end expiratory wheezing Heart: RRR Abdomen: scaphoid Arms and legs w/ muscle wasting Objective Last Vital Signs Temp 35.8 C L 07/21/23 04:00 Pulse 85 07/21/23 12:08 Resp 18 07/21/23 12:08 BP 137/82 07/21/23 11:29 Pulse Ox 98 07/21/23 12:08 Laboratory Results - last 24 hr 07/21/23 06:45 WBC 7.03 RBC 4.54 Hgb 13.2 L Hct 41.2 MCV 91 MCH 29.1 MCHC 32.0 RDW 12.7 Plt Count 172 MPV 10.0 Immature Gran % 0.7 Neutrophils % 73.7 Lymphocytes % 10.2 Monocytes % 11.9 Eosinophils % 3.1 Basophils % 0.4 Nucleated RBC % 0.0 Absolute Neutrophils 5.17 Absolute Lymphocytes 0.72 L Absolute Monocytes 0.84 H Absolute Eosinophils 0.22 Absolute Basophils 0.03 Sodium 140 Potassium 3.8 Chloride 101 Carbon Dioxide 38.1 H Anion Gap 0.9 L BUN 19 H Creatinine 0.7 Est GFR (CKD-EPI 2020) 102.89 Glucose 89 Calcium 9.2 Magnesium 2.1 Time Spent with Patient Time Spent with Patient: 25-34 minutes Time was spent: preparing to see the patient(eg.review tests), ordering medications,tests, procedures, indepentently interpreting results, counseling the patient and care coordination
[2023-07-21] MEDS: Tamsulosin 0.4 MG CAPCR PO (17:38)
[2023-07-21] MEDS: Normal Saline Flush 10 ML SYR IVP (20:40)
[2023-07-22] MEDS: Albuterol/Ipratropium 3 ML UPD VIAL UPD ×2 (05:28→11:52)
[2023-07-22 07:32] VITALS: BP 110/66; PULSE 94; RESP 20; TEMP 36.5; O2SAT 97
[2023-07-22 07:59] VITALS: O2SAT 96
[2023-07-22] MEDS: Budesonide/Formoterol 160/4.5 6 GM 60 PUFF INH IH (07:59)
[2023-07-22] MEDS: Tiotropium Bromide-Respimat 10 PUFF INH 2 PUFF IH (07:59)
[2023-07-22] MEDS: predniSONE 10 MG TAB 30 MG PO (09:34)
[2023-07-22] MEDS: Finasteride 5 MG TAB PO (09:34)
[2023-07-22] MEDS: Enoxaparin 40 MG/0.4 ML SYR SC (09:36)
--- NOTE | 2023-07-22 10:09 | PTTR_ITS ---
Date of service: 07/22/23 Time of Service: 09:45 PT Notes Visit Reasons: Acute hypercapnic respiratory failure Inpatient Physical Therapy Treatment Note [facility] Date: 07/22/23 PRECAUTIONS: Fall, standard, activity as tolerated. SUBJECTIVE: Patient appears more winded today, becomes out of breath more easily, asks for O2 to be turned up to 3L/min during bed mobility. OBJECTIVE: supine in bed, agreeable to therapy.? PAIN: none reported until this therapist requests that he lay on his left side, reports old rib injuries on right side causing him to feel locked up and uncomfortable. VITALS: monitored by nursing staff.? BED MOBILITY/TRANSFERS? Rolling L/R: independent Supine-sit: independent ? Sit-supine: independent ? Sit-stand: independent ? Stand-sit: independent ? Bed-Chair: independent ? Manual Therapy ([id number]): The synergistic application of movement-oriented strategies integrating exercise and manually applied mobilization and manipulation procedures. Techniques: * instructed patient on sidebending over pillow in bed, applied slight traction moving upper ribs and lower ribs away from each other. * Applied slight overpressure to top ribs during exhale * Instructed patient on pursed lip breathing, breathing up into top ribs to expand ribcage. * Applied grade 1 mobilizations to first rib with patient sitting EOB * instructed patient on self mobilization using sheet or long bath towel. ASSESSMENT:? Patient seems more short of breath today, more anxious. PLAN: Continue treatment per plan of care until patient is discharged. Patient to follow up with HHPT. TREATMENT CODE/TIME: 20 minutes beginning at 9:45
[2023-07-22 11:52] VITALS: PULSE 83; RESP 18; RESP 9; O2SAT 98
[2023-07-22 12:00] VITALS: PULSE 96
--- NOTE | 2023-07-22 12:41 | W.PM.DS.N ---
Date of service: 07/22/23 Time of Service: 12:41 DS: Diagnosis Discharge Diagnosis (1) Acute on chronic respiratory failure with hypoxia and hypercapnia: Status: Acute Asessment and Plan: Acute hypoxemic and hypercapnic respiratory failure in the setting of chronic respiratory failure. This was secondary to COPD exacerbation with superimposed community-acquired pneumonia. See hospital course below. Patient completed 7 days of antibiotics including initial dose of Levaquin 750 mg IV followed by 6 more days of ceftriaxone 1 g IV daily and azithromycin 500 mg IV daily for 6 days. Patient was treated with IV Solu-Medrol and transition over to a tapering dose of prednisone. Patient was treated with both LABA and prn albuterol. (2) Pneumonia: Status: Acute Asessment and Plan: As above. Initially his white cell count was elevated at 19,000 with antibiotic treatment decline to a normal value of 7000. Procalcitonin level was normal at less than 0.1 on admission was never repeated. (3) COPD exacerbation: Status: Acute Asessment and Plan: As above (4) Urinary retention: Status: Acute Asessment and Plan: Patient failed spontaneous voiding trial after removal of Castillo catheter. Castillo catheter was replaced he was started on Proscar and tamsulosin. Patient will need follow-up with Dr. Rico in the next week for an in office spontaneous voiding trial. Patient was instructed by nursing staff how to care for his Castillo catheter. Home health services including home nursing and physical therapy will be prescribed for home. Home nursing can work with him on management indwelling Castillo catheter. (5) Discharge planning issues: Status: Acute Asessment and Plan: Home health nursing and physical therapy was prescribed. PT was consulted while he was in the hospital. Patient was able to independently ambulate with use of a walker and portable oxygen. Patient was able to independently transfer and out of bed to a chair. Patient remains full code per his request. Discharge Plan Disposition Patient Disposition: Home W/Home Health Services Condition: Improving Discharge Details Reason For Visit: Acute hypercapnic respiratory failure Admit Date/Time: 07/13/23 23:50 Admit Provider: Sunny Jeffers Attending Provider: Sunny Jeffers Primary Care Provider: Shan Do Hospital Course Hospital Course: 62-year-old male with severe COPD dependent on home oxygen at a rate of 2 to 3 L/min presented to the emergency department acute COPD exacerbation with acute on chronic respiratory failure with both hypoxemia and hypercapnia. He required intubation and mechanical ventilation.. Patient's condition was complicated by me acquired pneumonia and sepsis syndrome required vasopressor support for hypotension. He was intubated on admission to the emergency department and started on antibiotics including ceftriaxone and azithromycin. He received a one-time dose of Levaquin 750 mg IV on emergency department. He was then treated with 6 days of azithromycin 500 mg as well as ceftriaxone 1 g IV daily 6 days from 07/14/2023 through 07/19/2023. He remained in the intensive care unit from admission on 07/14/2023 until his transfer to the medical floor on 07/16/2023. Postextubation he was bridged with BiPAP to prevent need for reintubation. He was treated with IV steroids including Solu-Medrol placed on LABA and LAMA as well as short acting beta agonist bronchodilators. Pulmonary consultation was obtained and Dr. Cata Davalos assisted with the weaning process. His IV corticosteroids was switched to prednisone and per Dr. Davalos's recommendation was placed on the taper process included prednisone 40 mg daily for 7 days followed by 30 mg daily x3 days followed by 5 mg daily x3 days followed by 10 mg daily x3 days followed by 5 mg daily x3 days. At the time of discharge she completed his 30 mg dose and will be discharged continued at 20 mg/day. His hospital stay was complicated by acute urinary retention. Castillo catheter been placed when he was intubated and mechanically ventilated and did have a spontaneous voiding trial but failed that. He was subsequently placed on Flomax Proscar. He will be discharged home with an indwelling Castillo catheter with instructions for follow-up with Dr. Mikey Rico, urologist to be seen as an outpatient. Dr. Rico did see him on 07/19/2023. Physical therapy was consulted and worked with the patient. Patient was independent in bed mobility and bed transfers as well as transfers in and out of the chair. He was ambulating with a front wheel walker full weightbearing going about 700 feet with a seated rest x2 during the walk. Maintaining SPO2 the of 88%. At the time of discharge patient was back to his baseline. Patient will be discharged home on a prednisone taper as noted above beginning at 20 mg/day x 3 days then decreasing every 3 days. He will continue his Trelegy. Prescription for finasteride and tamsulosin prescribed for his urinary retention. Follow-up appointments will need to be made for him with his primary care provider Dr. Shan Malcolm within the next week as well as follow-up with Dr. Rico in the next week and follow-up with Dr. Davalos in the next 2 to 3 weeks. Home Meds and New Rx's Prescriptions: New finasteride 5 mg Tablet 5 mg PO DAILY 30 Days Qty: 30 0RF prednisone 10 mg Tablet See Rx Instructions .ROUTE .COMPLEX Qty: 11 0RF Taper: Prednisone 20mg taper 20 mg Daily for 3 Days and 0 Hour 10 mg Daily for 3 Days and 0 Hour 5 mg Daily for 3 Days Rx Instructions: 20 mg/d x 3d, 10 mg/d x 3d, then 5 mg/d x 3d tamsulosin 0.4 mg Capsule 0.4 mg PO DAILY@1800 Qty: 30 0RF Continued Trelegy Ellipta 100-62.5-25 mcg blister with device 1 inh INHALATION DAILY Qty: 60 11RF albuterol sulfate 90 mcg/actuation HFA aerosol inhaler 2 puff inhalation Q6H PRN (Reason: shortness of breath or wheezing) Qty: 8.5 11RF acetaminophen [Tylenol Extra Strength] 500 mg tablet 500 mg PO Q6H PRN theophylline 300 mg tablet extended release 12 hr 150 mg PO BID Qty: 60 5RF Discharge Instructions Instructions: Castillo Catheter Placement and Care (GEN), Urinary Leg Bag (GEN), Energy Conservation Techniques (DC), Nutrition Guidelines for People with COPD (DC), How to Change a Catheter Drainage Bag (GEN) Stand Alone Forms: Nursing Discharge Form Referrals: Mikey Rico MD [ [facility]] - (follow up next week---Please call on Tuesday for an apt) Cata Davalos MD [ [facility]] - (follow up in 2 to 3 weeks--Please call on Tuesday to make an apt. ) Shan Do MD [Primary Care Provider] - 07/27/23 1:00 pm (follow up next week) Activity:: Activity as Tolerated Equipment/Supplies:: No Equipment Needed Diet:: Normal Diet Discharge Orders Discharge Orders: Discharge Order (Routine); Ordered 07/22/23 Ordered By: Eliud Wilder DS: Summary Time Spent with Patient providing and/or coordinating discharge services: Greater than 30 minutes Specific discharge activities: Interview/exam of patient; review of discharge instructions, completion of prescriptions/discharge instructions; discussion w/ nursing and CM; documentation of hospital visit Status at Discharge Functional status at discharge: uses cane/walker Overall status at discharge: patient is back to baseline Mental Status: mental status grossly normal Speech and Movement: speech and movement normal Mood: congruent mood Affect: normal affect Exam Narrative Exam Narrative: Jeronimo is sitting up at bedside working with his leg bag for his Castillo catheter. Learning how to strap it on office leg. He appears to be in no acute distress he is able to talk in complete sentences without dyspnea. No accessory respiratory muscle use. He has a very cachectic appearing gentleman who appears much older than his stated age of 62. Lungs are clear with prolonged expiratory phase without rhonchi or wheezing Heart is regular to slightly tachycardic but regular without appreciable murmur rub Abdomen is scaphoid nontender Extremities without edema Castillo catheter draining clear yellow urine Vital signs appear to be stable his BP is 110/66 pulse of 96 his respirations are nonlabored at 18 his SPO2 is 98% on 2 L/min per nasal cannula. Psych Mental Status: mental status grossly normal Speech and Movement: speech and movement normal Mood: congruent mood Affect: normal affect DS: Data Vitals/I&O Vitals and I&O: Vital Signs Temperature 36.5 C 07/22/23 07:32 Temperature Source Tympanic 07/22/23 07:32 Pulse 96 H 07/22/23 12:00 Pulse Rhythm Regular 07/22/23 09:42 Pulse 108 H 07/16/23 13:01 Respiratory Rate 18 07/22/23 11:52 Respiratory Effort Short of Breath 07/22/23 01:20 Respiratory Depth Shallow 07/22/23 01:20 Respiratory Pattern Tachypnea 07/22/23 01:20 Blood Pressure 110/66 07/22/23 07:32 Blood Pressure Mean 116 07/16/23 13:01 Blood Pressure Position Sitting 07/16/23 07:45 Pulse Oximetry 98 07/22/23 11:52 Respiratory End-tidal CO2 56 07/15/23 07:35 Oxygen Delivery Method Nasal Cannula 07/22/23 11:52 Oxygen Flow Rate 2 07/22/23 11:52 Fraction of Inspired Oxygen (FIO2) 29 07/16/23 08:09 Pain Level 2 07/21/23 09:30 Comment BP called over radio 07/21/23 16:46 Arterial Mean 18 07/14/23 10:01 Intake & Output 07/21/23 07/22/23 07/22/23 23:59 11:59 23:59 Intake Total 920 / 920 Output Total 725 / 1175 450 / 450 Balance 195 / -255 -450 / -450 Weight 44.4 kg Intake: Oral 920 / 920 Output: Urine 725 / 1175 450 / 450 Other: Urine Color Nieto Nieto Urine Appearance Clear Clear Urine Odor None Stool Size Small Stool Characteristics Soft Formed Voiding Methods Indwelling Catheter Data Completed and Pending Labs on day of discharge: Labs from last 24 hours 07/20/23 06:17 PSA Screen Pending [facility] All Active Problems Urinary retention (Acute) Discharge planning issues (Acute) DVT prophylaxis (Acute) Pneumonia (Acute) Hyperglycemia (Acute) Acute on chronic respiratory failure with hypoxia and hypercapnia (Acute) Hyperglycemia without ketosis (Acute) COPD exacerbation (Acute) Respiratory failure with hypoxia and hypercapnia (Acute) Hyperlipidemia (Acute) Tubular adenoma of colon (Acute) Depressive disorder (Chronic) Patient with inpatient mental health admission in [facility] system-unclear diagnosis-patient attributes to flare social stressors-no subsequent follow-up since moving to [place]. Symptoms currently quiet as of 10/1999 Degenerative joint disease involving multiple joints (Acute) Weight loss (Acute) PTSD (post-traumatic stress disorder) (Chronic) Personal history of nicotine dependence (Acute) 09/2021-about a [id number] history of smoking, patient quit 11/2020-Chest cT screen-unremarkable Essential hypertension (Acute) COPD (chronic obstructive pulmonary disease) (Chronic) O2 dependent Housing instability (Acute) Surgical History H/O lumpectomy (~08/08/07) large sebaceous cyst removed from right index finger History of open reduction and internal fixation (ORIF) procedure (~08/24/13) intertrochanteric Fx right hip Family History Mother Heart disease COPD (chronic obstructive pulmonary disease) Father Alcohol use disorder Heart disease Brother Substance use disorder Social History Smoking/Tobacco Use Status: Former Tobacco Use tobacco type: cigarettes Quit Date: 08/29/14 Tobacco: How many years used: 41 Second Hand Exposure: Yes Smoking risk assessment performed?: Yes Alcohol Intake: former Details: Pt formerly chewed tobacco Drug use: Never Substance use type: does not use Caregiver/Support person: No Household members: none Housing: other Do you need help understanding health information?: Rarely Pets and animals: No Sexually active: No Do you think of yourself as: straight/heterosexual Current gender identity: male What is your relationship status?: How often do you talk on the phone with friends or family?: never How often do you get together with friends or relatives?: never How often do you attend episcopal or mu-ism services?: decline to answer Do you belong to any clubs or organized social groups?: decline to answer Panel score (0-1 are the most socially isolated patients): 0 Duration: < 15 minutes/day Frequency: 1-2 times per week Liss/Sikh: No preference Special liss needs: No Additional Social history: Currently Homeless, ran out of O2 Time Spent with Patient Time Spent with Patient: <45 minutes Time was spent: preparing to see the patient(eg.review tests), ordering medications,tests, procedures, referring, communicating with other health day care assistant, indepentently interpreting results, counseling the patient and care coordination
--- NOTE | 2023-07-22 12:46 | PDOC.CMDIS ---
LACE Index Scoring Tool Questions: Length of Stay (in days): 7 - 13 Was the patient admitted via the E.D.?: Yes Comorbidities: Chronic Pulmonary Disease E.D. Visits: 0 Answers: Total Score: 10 Risk of Readmission: High Risk Care Management Discharge Plan Reason for Hospitalization: Acute hypercapnic respiratory failure Discharge Plan: Jeronimo will return home with new orders for HH RN, PT. CM coordinated RCT private vehicle home. He will follow up with community supports and plan of care as prescribed. Patient/Family Education Needs: Review discharge instructions, discuss Ask Me Three. Services Needed at Discharge: Home Health Care Services
--- NOTE | 2023-07-22 13:08 | PDOC.HHF2F_ITS ---
Home Health Referral Home Health Orders Clinical synopsis of why skilled professionals are needed: They canPatient was admitted in the hospital for acute on chronic chronic respiratory failure requiring intubation mechanical ventilation as well as antibiotics for pneumonia. Hospital course was complicated by acute urinary retention requiring Castillo cath placement after he failed spontaneous voiding trial. Patient is now back to his baseline respiratory function at 2 to 3 L/min per nasal cannula. Patient was instructed by hospital nursing staff on how to care for his Castillo catheter. Physical therapy was ordered during his hospital stay to treat him for deconditioning and generalized weakness. He needs home health services including nursing and physical therapy. Nursing staff to monitor his respiratory status instructed on his medication changes including his prednisone taper for COPD exacerbation as well as new urinary medications including Flomax and Proscar. Nursing staff is also monitoring and instructed him on the use of his Castillo catheter. Patient is to have a follow-up with Dr. Rico the next week for urologic consult regarding his acute urinary retention. Patient will need to follow-up with Dr. Cata Davalos, surveillance systems engineer regarding his COPD as well as the patient's primary care provider Dr. Shan Do. Physical therapy to follow in the home to continue working with him regarding his deconditioning and generalized weakness improve his ambulatory function to prevent falls. I also did instruct him on energy conserving techniques to help with his respiratory function. He needs better breathing exercises. Registered Nurse: Check all that apply Instruct on new or changed medication(s)/assess compliance: Ordered Instruct on, and maintenance of, urinary device: Ordered Assess for exacerbation of medical condition, instruct patient/caregivers on signs and symptoms to report for early detection: Ordered Physical Therapist: Check all that apply Increase strength & endurance for safe mobility at home: Ordered To design/establish home maintenance program: Ordered Fall reduction therapy program for patient with history of frequent falls: Ordered Home safety evaluation and teaching/gait training including stair management (if applicable): Ordered Better Breathing Program: Ordered Occupational Therapist: Evaluate and treat for patient unable to perform ADL/IADL/self-care: Ordered Automotive Detailer: Assist with community resources: Ordered Assist with terminal computer operator care planning: Ordered Home Bound Status Requires the aid of supportive device (check all that apply): Wheelchair Patient has a condition such that leaving home is medically contraindicated (Describe): Severe COPD causing extreme dyspnea with any kind of prolonged physical activity. Describe why leaving home would require a considerable and taxing effort: Requires frequent rest periods and Oxygen Encounter Date and Reason: I certify that a FTF encounter for this patient was performed on July 22, 2023 and that such encounter was related to the primary reason the patient requires home health services. The encounter was conducted in the following manner: * By me as the certifying physician, DOCUMENT CLERK, PA or * By an inpatient physician, DOCUMENT CLERK or PA during an inpatient stay who communicated findings to me, Certification And Authentication I certify that I composed the above information based on my clinical judgment relating to this patient's medical condition and, if applicable, clinical findings communicated to me by the NPP or inpatient physician who performed the FTF encounter. Name of Provider that will be monitoring home health services: Shan Do
[2023-07-22 18:07] LABS: PSA, Screening 1.7 ng/mL (<=4.5)
== END 2023-07-22 14:06 | disposition home health service (06) | DRG 208 ==
LOC: ER 07-14 00:56 → ICU 07-14 08:16 → MS 07-16 15:10
PROVIDERS: Family Medicine; Internal Medicine; Admitting Provider Family Medicine; Emergency Provider Student in an Organized Health Care Education/Training Program; PCP Family Medicine; Visit Provider Family Medicine
DX: J18.9 Pneumonia, unspecified organism (principal); J96.21 Acute and chronic respiratory failure with hypoxia; J96.22 Acute and chronic respiratory failure with hypercapnia; J44.0 Chronic obstructive pulmonary disease with (acute) lower respiratory infection; J44.1 Chronic obstructive pulmonary disease with (acute) exacerbation; Z68.1 Body mass index [BMI] 19.9 or less, adult; R73.9 Hyperglycemia, unspecified; R33.9 Retention of urine, unspecified; E78.5 Hyperlipidemia, unspecified; F32.A Depression, unspecified; M15.9 Polyosteoarthritis, unspecified; F43.10 Post-traumatic stress disorder, unspecified; I10 Essential (primary) hypertension; Z99.81 Dependence on supplemental oxygen; Z87.891 Personal history of nicotine dependence; E83.51 Hypocalcemia; I95.89 Other hypotension; R63.4 Abnormal weight loss
CPT/HCPCS: 51702; 00123; 31500; 36415; 36556; 36591; 36620; 71045; 76604; 80048; 80053; 82805; 84145; 84153; 85027; 87040; 87637; 93005; 93308; 94618; 94640; 96365; 96366; 96368; 97110; 97140; 97162; 97530; 99221; 99291; J1650; 36600; 81003; 81015; 83605; 83735; 83880; 84100; 84439; 84443; 84484; 85025; 85610; 85730; 87086; 93010; 94002; 94003; 94664; 94667; 94668; 94760; 99223; 99232; 99233; 99239; J0456; J0696; J1956; J2270; J7512; J7613; J7620

== ENCOUNTER → 2023-07-14 07:53 | Outpatient (BNVA) | payer MEDICARE, MEDICAID, SELFPAY | PROVIDERS: PCP Family Medicine; Referring Provider Family Medicine; Visit Provider Student in an Organized Health Care Education/Training Program ==

== ENCOUNTER → 2023-07-19 09:10 | Outpatient (BNVA) | payer MEDICARE, MEDICAID, SELFPAY | PROVIDERS: PCP Family Medicine; Referring Provider Family Medicine; Visit Provider Urology ==

== ENCOUNTER → 2023-08-19 10:54 | Outpatient (BNVA) | payer MEDICARE, MEDICAID, SELFPAY | PROVIDERS: PCP Family Medicine; Referring Provider Family Medicine; Visit Provider Student in an Organized Health Care Education/Training Program | DX: J44.9 Chronic obstructive pulmonary disease, unspecified (principal); J96.91 Respiratory failure, unspecified with hypoxia; J96.92 Respiratory failure, unspecified with hypercapnia; Z87.891 Personal history of nicotine dependence | CPT/HCPCS: 99214 ==